=== PATIENT | male | born 1995 | race Caucasian/White ===

== ENCOUNTER 2020-06-29 03:51 | Emergency (ER) | payer MEDICAID, SELFPAY ==
[2020-06-29 03:56] VITALS: BP 136/88; BP 148/76; PULSE 100; PULSE 152; RESP 30; O2SAT 95; O2SAT 98; BMI 30.9
[2020-06-29] MEDS: 0.9 % Sodium Chloride 1,000 ML 999 ML IVCONT ×2 (04:00→07:49)
--- NOTE | 2020-06-29 04:01 | CT_ITS ---
EXAMINATION: CONTRAST-ENHANCED CT OF THE CHEST; CONTRAST-ENHANCED CT OF THE ABDOMEN AND PELVIS INDICATION: Jumped 15 feet, reported rectal bleeding COMPARISON: None TECHNIQUE: 85 mL Omnipaque 350 IV contrast was utilized. Multidetector helical imaging was performed through the chest, abdomen, and pelvis. Coronal and sagittal reformatted images were created at the technologist workstation. DLP: 1680 mGy-cm DOSE LOWERING TECHNIQUES: This CT examination was performed using dose optimization techniques as appropriate, variously including the following: - Automated exposure control - Adjustment of mA and/or kV according to patient size (this includes techniques or standardized protocols for targeted exams were dose is matched to indication/reason for exam; i.e. extremities or head) - Use of iterative reconstruction technique FINDINGS: Chest: Partially limited assessment due to motion artifact. No regions of pulmonary consolidation identified bilaterally. No pneumothorax or pleural effusion. The visualized thyroid gland is unremarkable. There are subcentimeter mediastinal lymph nodes within the range of normal variation. Cardiac size is within normal limits; no pericardial effusion. Aorta appears unremarkable. Mild residual thymic tissue is suspected in the anterior mediastinum. No axillary lymphadenopathy is present. Abdomen/Pelvis: Suboptimal assessment due to patient motion artifact. The liver is homogeneous in attenuation without intrahepatic biliary ductal dilatation. The gallbladder is unremarkable. The spleen, pancreas, and adrenal glands are within normal limits. Bilateral nephrograms are symmetric. No hydronephrosis. No obstructing renal or ureteral calculi are present. Several hypodense lesions are present in both kidneys measuring up to approximately 2.8 cm, favored to represent cysts. The urinary bladder is unremarkable. The prostate and seminal vesicles are unremarkable. There is a thick-walled appearance of the rectum with mild adjacent stranding, suspicious for proctitis. No evidence of bowel obstruction. The appendix is unremarkable. No free fluid or free air is identified. The vascular structures are unremarkable. No retroperitoneal or pelvic lymphadenopathy is seen. No acute osseous findings. CT/CT abdomen pelvis w con IMPRESSION: 1. Suboptimal assessment due to patient motion artifact. 2. Thick-walled appearance of the rectum with mild surrounding stranding, suspicious for proctitis. 3. Several hypodense lesions in the kidneys, favoring cysts.
--- NOTE | 2020-06-29 04:01 | CT_ITS ---
CT/CT cervical spine wo con IMPRESSION: 1. Head: Suboptimal assessment due to patient motion artifact. No acute findings identified. 2. Cervical spine: Reversal of the normal cervical lordosis which may be due to patient positioning or muscle spasm. No additional acute findings identified. EXAMINATION: NONCONTRAST HEAD CT NONCONTRAST CERVICAL SPINE CT INDICATION INFORMATION: Fall COMPARISON: Head CT 09/04/2019 TECHNIQUE: Separate noncontrast CT examinations of the head and cervical spine were performed. Coronal head CT images and coronal and sagittal cervical spine images were created at the technologist workstation. DLP: 1417 mGy-cm DOSE LOWERING TECHNIQUES: This CT examination was performed using dose optimization techniques as appropriate, variously including the following: - Automated exposure control - Adjustment of mA and/or kV according to patient size (this includes techniques or standardized protocols for targeted exams were dose is matched to indication/reason for exam; i.e. extremities or head) - Use of iterative reconstruction technique FINDINGS: Head: Suboptimal assessment due to patient motion artifact. There is no evidence of acute intracranial hemorrhage or territorial infarction. No abnormal mass-effect or midline shift is seen. Bernstein to white matter differentiation is well preserved. No extra-axial fluid collections are identified. The ventricles are normal in size. There is no abnormal attenuation within the brain parenchyma. The osseous structures and soft tissues are normal. The mastoid air cells and visualized portions of the paranasal sinuses are well-aerated. Cervical spine: There is anatomic alignment of the vertebral bodies and posterior elements. There is reversal of normal cervical lordosis. Vertebral body heights are maintained. Intervertebral disc spaces are preserved. No evidence of acute fracture. No prevertebral soft tissue swelling. Visualized portions of the lung apices are unremarkable. The thyroid gland is unremarkable.
--- NOTE | 2020-06-29 04:02 | ECG_ITS ---
Test Reason : DRUG ABUSE Blood Pressure : / mmHG Vent. Rate : 141 BPM Atrial Rate : 141 BPM P-R Int : 126 ms QRS Dur : 098 ms QT Int : 298 ms P-R-T Axes : 080 061 063 degrees QTc Int : 456 ms Sinus tachycardia Otherwise normal ECG When compared with ECG of 09-JUL-2008 12:09, Heart rate has increased by 66 beats/min Referred By: Randee Pineda Electronically Signed By:Luis Fernando Rojas
--- NOTE | 2020-06-29 04:04 | ED_ITS ---
HPI - Altered Mental Status General Chief Complaint: ETOH/Substance Use Stated Complaint: ETOH Time Seen by Provider: 06/29/20 04:01 Source: patient, EMS and old records reviewed Mode of arrival: EMS Limitations: altered mental status History of Present Illness HPI narrative: patient states he did PCP tonight, I tonight, I am supposed to be . patient reportedly jumped 10 feet out of a window, noted bleeding from rectum and was running around the streets waving a ji JI complaint: altered mental status Onset (ago): hour(s) Timing confirmed by: family member Severity: severe Consistency of symptoms: getting Worse Context: drug abuse Associated symptoms: other (family noted bleeding from his rectum, waving dildo in the streets) Related Data Previous Rx's Medication Instructions Recorded metronidazole [Flagyl] 500 mg PO BID 7 Days #14 tab 06/29/20 Allergies Allergy/AdvReac Type Severity Reaction Status Date / Time No Known Allergies Allergy Unverified 02/20/20 16:14 Review of Systems Review of Systems: ROS unable to be obtained due to altered mental status [facility] Past Medical History Source: old records reviewed Medical History (Updated 06/29/20 @ 06:15 by Randee Pineda DO) Anxiety Asthma Depression No known health problems PCP abuse Social History Social History (Updated 06/29/20 @ 04:05 by Randee Pineda DO) Substance Use Type: Crack/Cocaine and Hallucinogens Advance Directives: No Advance Directives Information Provided: No Physical Exam Vital Signs: Vital Signs: Last Vital Signs Temp 98.4 F 06/29/20 05:13 Pulse 139 H 06/29/20 06:12 Resp 16 06/29/20 06:12 BP 128/80 06/29/20 06:12 Pulse Ox 98 06/29/20 05:13 Body Mass Index 30.9 Appearance: Alert. Oriented X1. Moderate acute distress. Eyes: Pupils 5mm equal, round and reactive to light. No nystagmus ENT: Pharynx normal. Neck: Normal inspection. Neck supple. CVS: tachycardic heart rate and rhythm. Pulses normal. Respiratory: No respiratory distress. Breath sounds normal. Abdomen: Soft and nontender. Rectal: no trauma noted, dried blood upper buttock crease but no active bleeding from rectum Skin: Skin warm and dry. Normal skin color. Normal skin turgor. Extremities: No lower extremity edema. No calf ttp Neuro: Oriented X 1. No motor deficit. No sensory deficit. Course Course Course Narrative: patient seemed to have a breath holding spell, he is moving away from painful stimuli and then desaturated to 70%, NRB and bagged for less than a minute patient fought to have his eyes opened, given 2mg narcan but he was already breathing on his own again - will continue to closely observe patient now awake but disoriented no hypoxia oral flagyl ordered for proctitis - likely from the dildo he was seen waving around while running signed out to Dr. Carballo pending clinical sobriety MDM - Altered Mental Status MDM Narrative Medical decision making narrative: 24 yo male with prior PCP abuse reports he used PCP and cocaine tonight, family noted he jumped out of 10 foot window, had bleeding from rectum and was running around streets with dildo - patient cannot give much history at this time no active rectal bleeding will obtain trauma CT scans, IV ativan for agitation, labs, dispo per results and findings. Lab Data Result diagrams: 06/29/20 04:04 06/29/20 04:49 Labs: Lab Results 06/29/20 06/29/20 06/29/20 Range/Units 04:04 04:04 04:49 WBC 6.7 (4.8-10.8) X10*3/uL RBC 5.13 (4.60-5.80) X10*6/uL Hgb 15.3 (14.0-18.0) g/dl Hct 46.0 (42-52) % MCV 89.7 (80-98) fL MCH 29.8 (27.0-33.0) pg MCHC 33.3 (31.0-36.0) g/dl RDW 12.4 (11.0-16.0) % Plt Count 286 (160-400) X10*3/uL MPV 9.6 (9.4-12.4) fL Immature Gran % (Auto) 0.1 (0.0-0.4) % Neut % (Auto) 66.5 (45-73) % Lymph % (Auto) 24.2 (20-40) % [place] % (Auto) 6.9 (2-11) % Eos % (Auto) 1.6 (0-4) % Baso % (Auto) 0.7 (0-2) % Lymph # (Auto) 1.6 (1.2-4.9) X10*3/uL [place] # (Auto) 0.5 (0.1-1.2) X10*3/uL Eos # (Auto) 0.1 (0.0-0.4) X10*3/uL Baso # (Auto) 0.1 (0.0-0.2) X10*3/uL Abs Immat Gran (auto) 0.01 (0.00-0.03) X10*3/uL Absolute Neuts (auto) 4.5 (2.0-8.3) X10*3/uL Absolute Nucleated RBC 0.000 (0.0-0.012) X10*3/uL Nucleated RBC % (auto) 0.0 (0.0-0.2) /100WBC PT 12.2 (10.8-13.0) SEC INR 1.0 (0.9-1.1) APTT 28.3 (24.1-38.0) SEC Sodium 137 (135-145) mmol/L Potassium 3.5 (3.3-5.1) mmol/l Chloride 104 (96-108) mmol/L Carbon Dioxide 18 L (22-29) mmol/L Anion Gap 19 (12-20) BUN 12 (9-16) mg/dL Creatinine 1.24 (0.5-1.4) mg/dL Estim Creat Clear Calc 99.4 Estimated GFR > 60 Random Glucose 191 H (60-115) mg/dL Calcium 8.6 (8.4-10.2) mg/dL Magnesium 2.2 (1.6-2.6) mg/dL Total Bilirubin 0.4 (0.0-1.0) mg/dL Direct Bilirubin 0.2 (0.0-0.5) mg/dL AST 22 (5-37) U/L ALT 23 (0-40) U/L Alkaline Phosphatase 58 (39-117) U/L Total Creatine Kinase 214 H (38-174) U/L Total Protein 6.9 (6.5-8.0) g/dL Albumin 4.2 (3.5-5.0) g/dL Lipase (8-78) U/L Ethyl Alcohol mg/dL COVID-19 ([place]) (Negative) COVID-19 Clin Com 06/29/20 06/29/20 06/29/20 Range/Units 04:49 04:49 04:49 WBC (4.8-10.8) X10*3/uL RBC (4.60-5.80) X10*6/uL Hgb (14.0-18.0) g/dl Hct (42-52) % MCV (80-98) fL MCH (27.0-33.0) pg MCHC (31.0-36.0) g/dl RDW (11.0-16.0) % Plt Count (160-400) X10*3/uL MPV (9.4-12.4) fL Immature Gran % (Auto) (0.0-0.4) % Neut % (Auto) (45-73) % Lymph % (Auto) (20-40) % [place] % (Auto) (2-11) % Eos % (Auto) (0-4) % Baso % (Auto) (0-2) % Lymph # (Auto) (1.2-4.9) X10*3/uL [place] # (Auto) (0.1-1.2) X10*3/uL Eos # (Auto) (0.0-0.4) X10*3/uL Baso # (Auto) (0.0-0.2) X10*3/uL Abs Immat Gran (auto) (0.00-0.03) X10*3/uL Absolute Neuts (auto) (2.0-8.3) X10*3/uL Absolute Nucleated RBC (0.0-0.012) X10*3/uL Nucleated RBC % (auto) (0.0-0.2) /100WBC PT (10.8-13.0) SEC INR (0.9-1.1) APTT (24.1-38.0) SEC Sodium (135-145) mmol/L Potassium (3.3-5.1) mmol/l Chloride (96-108) mmol/L Carbon Dioxide (22-29) mmol/L Anion Gap (12-20) BUN (9-16) mg/dL Creatinine (0.5-1.4) mg/dL Estim Creat Clear Calc Estimated GFR Random Glucose (60-115) mg/dL Calcium (8.4-10.2) mg/dL Magnesium (1.6-2.6) mg/dL Total Bilirubin (0.0-1.0) mg/dL Direct Bilirubin (0.0-0.5) mg/dL AST (5-37) U/L ALT (0-40) U/L Alkaline Phosphatase (39-117) U/L Total Creatine Kinase (38-174) U/L Total Protein (6.5-8.0) g/dL Albumin (3.5-5.0) g/dL Lipase 52 (8-78) U/L Ethyl Alcohol < 10 mg/dL COVID-19 ([place]) Negative (Negative) COVID-19 Clin Com See Note ECG Data ECG #1: Attestation: I personally reviewed and interpreted this ECG as follows: ECG interpretation date: 06/29/20 ECG interpretation time: 04:10 Interpretation: Rate: 141 Rhythm: sinus tachycardia [place]: normal Normal P waves. Normal [place]. Normal QRS complex. ST T wave : normal no JAMEY qTC: normal prior studies: no acute ischemia The study has been interpreted contemporaneously by me. . Discharge Plan Discharge Clinical Impression: Proctitis PCP intoxication Qualifiers: Complication of substance-induced condition: with delirium Qualified Code(s): F16.921 - Hallucinogen use, unspecified with intoxication with delirium Instructions: Proctitis (ED), Polysubstance Abuse (ED) Additional Instructions: return to ED for any worsening symptoms or concerns Prescriptions: New metronidazole [Flagyl] 500 mg tablet 500 mg PO BID 7 Days Qty: 14 RF: 0 Stand Alone Forms: Work/School Release
[2020-06-29 04:09] LABS: Basophils Absolute Auto 0.1 X10*3/uL (0.0-0.2); Basophils Percent Auto 0.7 % (0-2); Eosinophils Absolute Auto 0.1 X10*3/uL (0.0-0.4); Eosinophils Percent Auto 1.6 % (0-4); Hemoglobin 15.3 g/dl (14.0-18.0); Imm Gran Abs Auto 0.01 X10*3/uL (0.00-0.03); Imm Gran Pct Auto 0.1 % (0.0-0.4); Lymphocytes Absolute Auto 1.6 X10*3/uL (1.2-4.9); Lymphocytes Percent Auto 24.2 % (20-40); MANUAL DIFF FLAG NO; Mean Corpuscular HGB Conc 33.3 g/dl (31.0-36.0); Mean Corpuscular Hemoglobin 29.8 pg (27.0-33.0); Mean Corpuscular Volume 89.7 fL (80-98); Mean Platelet Volume 9.6 fL (9.4-12.4); Monocytes Absolute Auto 0.5 X10*3/uL (0.1-1.2); Monocytes Percent Auto 6.9 % (2-11); Neutrophils Absolute Auto 4.5 X10*3/uL (2.0-8.3); Neutrophils Percent Auto 66.5 % (45-73); Platelet Count 286 X10*3/uL (160-400); Red Blood Count 5.13 X10*6/uL (4.60-5.80); Red Cell Distribution Width 12.4 % (11.0-16.0); White Blood Count 6.7 X10*3/uL (4.8-10.8)
[2020-06-29] MEDS: Naloxone HCl 2 MG/2 ML SYRINGE IVPUSH (04:14)
--- NOTE | 2020-06-29 04:14 | PC.NURSE ---
PATIENT O2 DOWN TO 70% WITH GOOD PLETH. STAFF TO BED SIDE NC PLACED ON PATIENT. UNRESPONSIVE TO PAINFUL STIMULI. GIVEN 2MG IV NARCAN. NOW 100% ON NON-REBREATHER.
[2020-06-29 04:18] LABS: Prothrombin Time 12.2 SEC (10.8-13.0)
[2020-06-29 04:20] LABS: Partial Thromboplastin Time 28.3 SEC (24.1-38.0)
[2020-06-29 04:36] VITALS: BP 166/71; PULSE 146; RESP 20; TEMP 36.7; O2SAT 99
[2020-06-29 05:07] LABS: COVID-19 Test Negative (Negative)
[2020-06-29 05:13] VITALS: BP 132/81; PULSE 129; RESP 18; TEMP 36.9; O2SAT 98
[2020-06-29 05:18] LABS: Ethanol < 10 mg/dL
[2020-06-29 05:20] LABS: Lipase 52 U/L (8-78)
[2020-06-29 05:22] LABS: Alanine Aminotransferase 23 U/L (0-40); Albumin Level 4.2 g/dL (3.5-5.0); Alkaline Phosphatase 58 U/L (39-117); Anion Gap 19 (12-20); Aspartate Amino Transferase 22 U/L (5-37); Bilirubin Direct 0.2 mg/dL (0.0-0.5); Bilirubin Total 0.4 mg/dL (0.0-1.0); Blood Urea Nitrogen 12 mg/dL (9-16); Calcium 8.6 mg/dL (8.4-10.2); Carbon Dioxide 18 mmol/L (22-29); Chloride 104 mmol/L (96-108); Creatinine Clr Calc Pharmacy 99.4; Estimated Glomerular Filt Rate > 60; Glucose Random 191 mg/dL (60-115); Magnesium 2.2 mg/dL (1.6-2.6); Potassium 3.5 mmol/l (3.3-5.1); Sodium 137 mmol/L (135-145); Total Protein 6.9 g/dL (6.5-8.0)
[2020-06-29] MEDS: LORazepam 2 MG/ML VIAL 1 MG IVPUSH (05:41)
[2020-06-29 06:12] VITALS: BP 128/80; PULSE 139; RESP 16
[2020-06-29] MEDS: metroNIDAZOLE 500 MG TABLET PO (06:42)
[2020-06-29 07:32] LABS: Appearance Urine CLEAR; Color Urine YELLOW; Glucose Urine UA 100 MG/DL (NEG); Leukocyte Esterase Urine NEG (NEG); Nitrite Urine NEG (NEG); Specific Gravity - Urine 1.015 (1.005-1.025); Urine Blood TRACE (NEG); Urine Ketones NEG (NEG); Urine Protein TRACE MG/DL (NEG-TRACE)
[2020-06-29 07:42] LABS: Squamous Epithelial Cell Urine 1+ /LPF
[2020-06-29 07:43] LABS: Mucus Urine 2+ /LPF; Renal Epithelial Cells Urine TRACE /LPF; Trichomonas Urine NOTED
[2020-06-29 07:48] VITALS: BP 122/80; PULSE 122; RESP 16; O2SAT 98
--- NOTE | 2020-06-29 07:49 | PC.NURSE ---
Pt denies ETOH use but admits to recreational PCP use. No SI/HI Steady on feet to bathroom, urine specimen obtained Tachy on tele rate 120s, additional 1L NS started
[2020-06-29 08:05] LABS: Amphetamine Screen Urine Not Detected (Not Detect); Barbiturates, Urine Not Detected (Not Detect); Benzodiazepines Screen Urine Not Detected (Not Detect); Cannabinoid Screen Urine Not Detected (Not Detect); Cocaine Screen Urine POSITIVE (Not Detect); Opiate Screen Urine Not Detected (Not Detect); Phencyclidine Screen Urine POSITIVE (Not Detect)
[2020-06-29 10:00] VITALS: BP 128/73; PULSE 97; RESP 18; O2SAT 98
--- NOTE | 2020-06-29 10:45 | MHC.RECOVRN ---
06/29/20 1687 T/w met with pt to discuss substance use. Pt states I don't want to talk about it. T/w left resources and card with pt if pt would like to reach out to discuss at another time.
--- NOTE | 2020-06-29 10:56 | MHC.RECOVSUP ---
? Reason for consult:Continuity of care o Current location: o Identified substance use concern: PCP - Support ? Intervention:Pt, given community resources ? Plan:Discharge ? Additional information: Patient referred to [facility] and given community resources
== END 2020-06-29 10:25 | disposition home or self-care (01) ==
PROVIDERS: Emergency Provider Emergency Medicine
DX: K62.89 Other specified diseases of anus and rectum (principal); F16.121 Hallucinogen abuse with intoxication with delirium; F19.121 Other psychoactive substance abuse with intoxication delirium; Z20.822 Contact with and (suspected) exposure to COVID-19
CPT/HCPCS: 36415; 70450; 71260; 72125; 74177; 80048; 80076; 80307; 80320; 81001; 82550; 83690; 83735; 85025; 85610; 85730; 87635; 93005; 96361; 96374; 96375; 96376; 99285; J2060

== ENCOUNTER 2020-11-19 21:16 | Emergency (ER) | payer MEDICAID, SELFPAY ==
--- NOTE | ~2020-11-19 | XR_ITS ---
EXAMINATION: XR CHEST CLINICAL INFORMATION: Confusion. Overdose. COMPARISON: Chest x-ray 08/03/2016 TECHNIQUE: Frontal view of the chest was obtained. 10:05 PM FINDINGS: No significant abnormality is noted involving the heart, lungs, mediastinum, bony thorax or soft tissues. XR/XR chest 1V IMPRESSION: Unremarkable examination.
--- NOTE | ~2020-11-19 | CT_ITS ---
EXAMINATION: CT HEAD WITHOUT CONTRAST CLINICAL INFORMATION: Overdose, confused, rule out intracranial abnormality. COMPARISON: 06/29/[address] scan. TECHNIQUE: Contiguous axial imaging was performed from the skull base to vertex without intravenous administration of contrast. Coronal and sagittal reformatted images were obtained. This CT examination was performed using dose optimization techniques as appropriate, variously including the following: *Automated exposure control *Adjustment of mA and/or kV according to patient size (this includes techniques or standardized protocols for targeted exams where dose is matched to indication/reason for exam; i.e. extremities or head) *Use of iterative reconstruction technique DLP: 671 mGy-cm FINDINGS: There is no evidence of acute intracranial hemorrhage or territorial infarction. No abnormal mass effect or midline shift is seen. Bernstein to white matter differentiation is well preserved. No extra-axial fluid collections are identified. The ventricles are normal in size. There is no abnormal attenuation within the brain parenchyma. The osseous structures and soft tissues are normal. Small retention cyst versus inflammatory polyps along the medial wall the right maxillary sinus as well is the right sphenoid sinus. No air-fluid levels. Bilateral mastoid air cells are clear. CT/CT head/brain wo con IMPRESSION: No acute intracranial pathology.
[2020-11-19 21:31] VITALS: BP 160/102; PULSE 130
[2020-11-19 21:37] VITALS: BP 143/77; PULSE 120; RESP 18; O2SAT 96
[2020-11-19 21:39] VITALS: BP 143/77; PULSE 120; RESP 20; TEMP 37.1; O2SAT 92; BMI 25.6
--- NOTE | 2020-11-19 21:40 | ECG_ITS ---
Test Reason : OVERDOSE Blood Pressure : / mmHG Vent. Rate : 123 BPM Atrial Rate : 123 BPM P-R Int : 150 ms QRS Dur : 098 ms QT Int : 314 ms P-R-T Axes : 067 059 025 degrees QTc Int : 449 ms Sinus tachycardia Otherwise normal ECG When compared with ECG of 29-JUN-2020 04:07, No significant change was found Referred By: Alber Martin Electronically Signed By:PARUL SMALL
--- NOTE | 2020-11-19 21:42 | ED_ITS ---
HPI - General Adult General Chief complaint: Overdose Stated complaint: od Time Seen by Provider: 11/19/20 21:39 Source: RN notes reviewed Mode of arrival: EMS Limitations: no limitations History of Present Illness HPI narrative: 25-year-old male brought to the emergency department for possible overdose. The patient lacks insight as to why he is here in the emergency department and appears to be confused but does follow simple commands. According to the ED nurse who report from the paramedics, they were called to the patient's home for the patient who became unresponsive after polysubstance use. The patient had a very low respiratory rate and the paramedics were assisting his respirations with a bag valve mask. He received 8 mg of Narcan intranasally and 2 mg of Narcan IV. He then woke up and became combative he pulled out his IV line, he was hypertensive with a blood pressure of 160/102 and tachycardic with a pulse of 170. Patient's point of care glucose was 130. Paramedics were able to reestablish the IV and transport the patient to the emergency department. Here in the emergency department patient was able to tell me his name, he cannot tell me why he is here in the emergency department, he appears to be confused. Related Data Previous Rx's Medication Instructions Recorded metronidazole [Flagyl] 500 mg PO BID 7 Days #14 tab 06/29/20 Allergies Allergy/AdvReac Type Severity Reaction Status Date / Time No Known Allergies Allergy Unverified 02/20/20 16:14 Review of Systems Review of Systems: Yes all other systems are reviewed and are negative PMFSH Past Medical History [facility] Narrative: Past medical history: Please see below. Past surgical history: Unobtainable. Social history: Unobtainable Medical History (Updated 11/20/20 @ 00:20 by Alber Martin MD) Anxiety Asthma Depression No known health problems PCP abuse Social History Social History Alcohol intake: unknown Patient Tobacco Use Status: Refuse Tobacco use screen Use of substances other than those prescribed or required for medical reasons: Refusing to respond Substance Use Type: Amphetamines Advance Directives: No Advance Directives Information Provided: Yes Physical Exam Vital Signs: Vital Signs: Last Vital Signs Temp 98.7 F 11/19/20 21:39 Pulse 105 H 11/20/20 00:12 Resp 18 11/20/20 00:12 BP 137/81 11/20/20 00:12 Pulse Ox 97 11/20/20 00:12 Body Mass Index 25.6 Const: Other: Patient is awake, who is able to tell me his name, appears to be confused and he cannot tell me why is here in the emergency department. He does follow commands, he is cooperative at this time. Orientation /consciousness: oriented to person HENMT: Head: Yes normal to inspection, Yes normocephalic and Yes atraumatic Ears: external ears normal General nose exam: Normal external nose present Face and sinus: Yes normal facial exam Mouth: Normal oral and palatal mucosa present Throat: Yes posterior oropharynx normal Eyes: Periorbital: periorbital findings normal Eyelids: Yes eyelids normal Conjunctivae: conjunctivae normal Sclerae: sclerae normal Corneas: corneas normal Pupils: Equal, round and reactive pupils present Direct Ophthalmoscopy: normal light reflex Neck: Neck: Yes full ROM, Yes no lymphadenopathy, Yes no meningeal signs, Yes trachea midline and Yes supple Chest: Chest palpation & inspection: normal inspection of the chest and normal palpation of entire chest wall Resp: Effort & Inspection: normal respiratory effort and able to speak in comp lete sentences Auscultation: clear to auscultation bilaterally Cardio: Rate: regular rate Rhythm: regular rhythm Heart sounds: S1 normal heart sound present, S2 normal heart sound present and no murmurs GI: Inspection: Yes normal to inspection Palpation (GI): Soft to palpation, nontender, no guarding, not rigid and No hepatosplenomegaly present : General: Yes no CVA tenderness Back/Spine/Pelvis: Back: no CVA tenderness Cervical Spine: normal cervical lordosis Thoracic/Lumbar Spine: thoracic and lumbar spine normal to inspection Skin: Lesions: no lesions Rashes: no rashes Wounds: no wounds Neuro: General: oriented to person and no meningeal signs Cranial nerves: Y es CN's II-XII intact bilaterally and Yes Equal, round and reactive pupils present Cognition (Neuro): normal cognition Motor exam (neuro): 5/5 motor strength present throughout Extrem: General: Yes normal to inspection and Yes full ROM Psych: Appearance: [facility] Course Course Course Narrative: 25-year-old male who presents emergency department for evaluation of altered level of consciousness, respiratory depression and possible polysubstance abuse. The patient was given Narcan 8 mg intranasally 2 mg IV and he did eventually wake up and become combative. He was hypertensive, tachycardic and uncooperative when the paramedics eventually woke him up with Narcan. Here in the emergency department he is cooperative but appears to be confused. Vital signs in the emergency department revealed tachycardia with pulse of 120 and hypertension with a blood pressure of 143/77 otherwise were unremarkable. His examination was also unremarkable except for his confusion. The patient will be kept on a cardiac and O2 saturation monitor. I did order CBC, CMP, urine tox screen, alcohol level, lactic acid, lipase and urinalysis. I will obtain a CT scan of the patient's head and chest x-ray. At this time the patient appears to be calm and cooperative and does not need to be medicated. 0014: Patient's laboratory evaluation revealed a normal CBC, low bicarb of 19, elevated glucose, mildly elevated AST and ALT. Urinalysis was negative. Tox screen was positive PCP and cocaine. Chest x-ray was unremarkable. CT scan the brain was unremarkable. The patient is awake and alert, he is requesting to go home. The patient does not want to talk to a crisis counselor about his drug use. I did tell the patient that he overdosed on narcotic medication almost tonight. The patient will be sent home with a Narcan nasal Dosepak. I told him that if he continues to use drugs that he should make sure that there was a sober observer that can administer Narcan in the event that he stops breathing or becomes unresponsive. The patient's mother was contacted and she will come to the emergency department and take the patient home. Medical Decision Making Lab Data Result diagrams: 11/19/20 21:53 11/19/20 21:53 Labs: Lab Results 11/19/20 11/19/20 11/19/20 Range/Units 21:53 21:53 21:53 WBC 7.4 (4.8-10.8) X10*3/uL RBC 4.53 L (4.60-5.80) X10*6/uL Hgb 13.8 L (14.0-18.0) g/dl Hct 41.6 L (42-52) % MCV 91.8 (80-98) fL MCH 30.5 (27.0-33.0) pg MCHC 33.2 (31.0-36.0) g/dl RDW 13.3 (11.0-16.0) % Plt Count 264 (160-400) X10*3/uL MPV 9.5 (9.4-12.4) fL Immature Gran % (Auto) 0.3 (0.0-0.4) % Neut % (Auto) 74.4 H (45-73) % Lymph % (Auto) 19.0 L (20-40) % [place] % (Auto) 3.9 (2-11) % Eos % (Auto) 1.9 (0-4) % Baso % (Auto) 0.5 (0-2) % Lymph # (Auto) 1.4 (1.2-4.9) X10*3/uL [place] # (Auto) 0.3 (0.1-1.2) X10*3/uL Eos # (Auto) 0.1 (0.0-0.4) X10*3/uL Baso # (Auto) 0.0 (0.0-0.2) X10*3/uL Abs Immat Gran (auto) 0.02 (0.00-0.03) X10*3/uL Absolute Neuts (auto) 5.5 (2.0-8.3) X10*3/uL Absolute Nucleated RBC 0.000 (0.0-0.012) X10*3/uL Nucleated RBC % (auto) 0.0 (0.0-0.2) /100WBC Sodium 141 (135-145) mmol/L Potassium 3.9 (3.3-5.1) mmol/L Chloride 106 (96-108) mmol/L Carbon Dioxide 27 (22-29) mmol/L Anion Gap 12 (12-20) BUN 19 H D (9-16) mg/dL Creatinine 1.24 (0.5-1.4) mg/dL Estim Creat Clear Calc 86.5 Estimated GFR > 60 Random Glucose 156 H (60-115) mg/dL Lactic Acid 1.4 (0.5-2.0) mmol/L Calcium 9.1 (8.4-10.2) mg/dL Total Bilirubin 0.4 (0.0-1.0) mg/dL AST 94 H (5-37) U/L ALT 101 H (0-40) U/L Alkaline Phosphatase 73 D (39-117) U/L Total Protein 6.7 (6.5-8.0) g/dL Albumin 4.0 (3.5-5.0) g/dL Lipase (8-78) U/L Ethyl Alcohol mg/dL 11/19/20 11/19/20 Range/Units 21:53 21:53 WBC (4.8-10.8) X10*3/uL RBC (4.60-5.80) X10*6/uL Hgb (14.0-18.0) g/dl Hct (42-52) % MCV (80-98) fL MCH (27.0-33.0) pg MCHC (31.0-36.0) g/dl RDW (11.0-16.0) % Plt Count (160-400) X10*3/uL MPV (9.4-12.4) fL Immature Gran % (Auto) (0.0-0.4) % Neut % (Auto) (45-73) % Lymph % (Auto) (20-40) % [place] % (Auto) (2-11) % Eos % (Auto) (0-4) % Baso % (Auto) (0-2) % Lymph # (Auto) (1.2-4.9) X10*3/uL [place] # (Auto) (0.1-1.2) X10*3/uL Eos # (Auto) (0.0-0.4) X10*3/uL Baso # (Auto) (0.0-0.2) X10*3/uL Abs Immat Gran (auto) (0.00-0.03) X10*3/uL Absolute Neuts (auto) (2.0-8.3) X10*3/uL Absolute Nucleated RBC (0.0-0.012) X10*3/uL Nucleated RBC % (auto) (0.0-0.2) /100WBC Sodium (135-145) mmol/L Potassium (3.3-5.1) mmol/L Chloride (96-108) mmol/L Carbon Dioxide (22-29) mmol/L Anion Gap (12-20) BUN (9-16) mg/dL Creatinine (0.5-1.4) mg/dL Estim Creat Clear Calc Estimated GFR Random Glucose (60-115) mg/dL Lactic Acid (0.5-2.0) mmol/L Calcium (8.4-10.2) mg/dL Total Bilirubin (0.0-1.0) mg/dL AST (5-37) U/L ALT (0-40) U/L Alkaline Phosphatase (39-117) U/L Total Protein (6.5-8.0) g/dL Albumin (3.5-5.0) g/dL Lipase 49 (8-78) U/L Ethyl Alcohol < 10 mg/dL ECG Data Interpretation: 2134: Sinus tachycardia with a rate of 123, normal [place], QRS and QTC intervals, no ST segment elevation, no ST segment depression, no PACs, no PVCs, except for the tachycardia, this is a normal EKG. Discharge Plan Discharge Clinical Impression: Polysubstance dependence including opioid type drug with complication, continuous use Opiate overdose Qualifiers: Encounter type: initial encounter Injury intent: accidental or unintentional Qualified Code(s): T40.601A - Poisoning by unspecified narcotics, accidental (unintentional), initial encounter Patient Disposition: Home, Self-Care Instructions: Narcotic Safety (ED), Narcotic Use Disorder (ED) Additional Instructions: You overdosed on narcotics this evening and you almost . You need to get help with your drug use and if you continue to use you will from an overdose. I am sending you home with and intranasal Narcan kit. If you continue to use drugs, you should make sure that there is someone with you who is sober and who can give you the intranasal Narcan if you pass out or stop breathing. Follow-up with your doctor in 2 days. Please return to the emergency department if your symptoms get worse or if you develop any symptoms that are concerning to you. Prescriptions: No Action metronidazole [Flagyl] 500 mg tablet 500 mg PO BID 7 Days Qty: 14 RF: 0
[2020-11-19 21:56] VITALS: BP 127/64; PULSE 113; RESP 20; O2SAT 97
[2020-11-19] MEDS: 0.9 % Sodium Chloride 1,000 ML 999 ML IV (21:56)
[2020-11-19 21:57] LABS: MANUAL DIFF FLAG NO
[2020-11-19 22:00] VITALS: BP 129/69; PULSE 115; RESP 18; O2SAT 96
[2020-11-19 22:03] LABS: Basophils Percent Auto 0.5 % (0-2); Eosinophils Absolute Auto 0.1 X10*3/uL (0.0-0.4); Eosinophils Percent Auto 1.9 % (0-4); Hematocrit 41.6 % (42-52); Hemoglobin 13.8 g/dl (14.0-18.0); Imm Gran Abs Auto 0.02 X10*3/uL (0.00-0.03); Imm Gran Pct Auto 0.3 % (0.0-0.4); Lymphocytes Absolute Auto 1.4 X10*3/uL (1.2-4.9); Mean Corpuscular HGB Conc 33.2 g/dl (31.0-36.0); Mean Corpuscular Hemoglobin 30.5 pg (27.0-33.0); Mean Corpuscular Volume 91.8 fL (80-98); Mean Platelet Volume 9.5 fL (9.4-12.4); Monocytes Absolute Auto 0.3 X10*3/uL (0.1-1.2); Monocytes Percent Auto 3.9 % (2-11); Neutrophils Absolute Auto 5.5 X10*3/uL (2.0-8.3); Neutrophils Percent Auto 74.4 % (45-73); Platelet Count 264 X10*3/uL (160-400); Red Blood Count 4.53 X10*6/uL (4.60-5.80); Red Cell Distribution Width 13.3 % (11.0-16.0); White Blood Count 7.4 X10*3/uL (4.8-10.8)
[2020-11-19 22:15] LABS: Lactic Acid 1.4 mmol/L (0.5-2.0)
[2020-11-19 22:18] LABS: Ethanol < 10 mg/dL
[2020-11-19 22:21] LABS: Lipase 49 U/L (8-78)
[2020-11-19 22:26] LABS: Alanine Aminotransferase 101 U/L (0-40); Alkaline Phosphatase 73 U/L (39-117); Anion Gap 12 (12-20); Aspartate Amino Transferase 94 U/L (5-37); Bilirubin Total 0.4 mg/dL (0.0-1.0); Blood Urea Nitrogen 19 mg/dL (9-16); Calcium 9.1 mg/dL (8.4-10.2); Carbon Dioxide 27 mmol/L (22-29); Chloride 106 mmol/L (96-108); Creatinine Clr Calc Pharmacy 86.5; Estimated Glomerular Filt Rate > 60; Glucose Random 156 mg/dL (60-115); Potassium 3.9 mmol/L (3.3-5.1); Sodium 141 mmol/L (135-145); Total Protein 6.7 g/dL (6.5-8.0)
[2020-11-19 22:45] VITALS: BP 130/70; PULSE 112; RESP 20; O2SAT 98
[2020-11-20] VITALS: BP 137/81; PULSE 110; RESP 18; O2SAT 98
[2020-11-20 00:12] VITALS: BP 137/81; PULSE 105; RESP 18; O2SAT 97
--- NOTE | 2020-11-20 00:13 | PC.NURSE ---
SPOKE WITH MOTHER. PT REQUESTING TO GO HOME. CONTINUES TO DENY SI/HI. PLAN IS FOR MOTHER TO COME AND SPINE NURSE PATIENT. SKIN WARM AND DRY. RESP UNLABORED. DENIES N/V. NO C/O PAIN. TOLERATING PO.
[2020-11-20] MEDS: Naloxone HCl Nasal TAKE HOME 4 MG SPRAY NOSTRILALT (01:05)
== END 2020-11-20 01:11 | disposition home or self-care (01) ==
PROVIDERS: Emergency Provider Emergency Medicine Emergency Medical Services
DX: T40.601A Poisoning by unspecified narcotics, accidental (unintentional), initial encounter (principal); Y92.009 Unspecified place in unspecified non-institutional (private) residence as the place of occurrence of the external cause; F19.20 Other psychoactive substance dependence, uncomplicated
CPT/HCPCS: 36415; 70450; 71045; 80053; 82077; 83605; 83690; 85025; 93005; 96360; 99285

== ENCOUNTER 2021-11-06 19:35 | Emergency (ER) | payer MEDICAID, SELFPAY ==
[2021-11-06 19:44] VITALS: BP 157/94; PULSE 106; RESP 20; TEMP 37.6; O2SAT 96; BMI 30.4
--- NOTE | 2021-11-06 20:14 | ED_ITS ---
HPI - General Adult General Chief complaint: ETOH/Substance Use Stated complaint: broken wrist, delusional Time Seen by Provider: 11/06/21 20:14 Source: patient Mode of arrival: ambulatory Limitations: other (Patient appears under the influence of drugs) History of Present Illness HPI narrative: 26-year-old male history of polysubstance abuse, anxiety, depression presents to the emergency department with complaints of right ear pain and left wrist pain X2 days. Patient unable to give me a good history however according to nursing notes and girlfriend patient has been reporting left wrist pain status post mika jesus last month. Patient is also telling me he feels like there is something in his right ear. He tells me that this has been going on for few days. Patient denies swimming or putting foreign bodies in his ears. And I asked him what while sees here he says lots of stuff and tells me I do not Wanna talk about it . Denies suicidal ideation and homicidal ideation. Denies any other medical complaints at this time. Patient denies suicidal ideation homicidal ideation. Onset (ago): day(s) (2) Radiation: non-radiation Severity: moderate Relieving factors: none Exacerbating factors: none Associated symptoms: denies other symptoms Related Data Previous Rx's Medication Instructions Recorded metronidazole 500 mg tablet 500 mg PO BID 7 Days #14 tab 06/29/20 (Flagyl) Allergies Allergy/AdvReac Type Severity Reaction Status Date / Time No Known Allergies Allergy Unverified 11/06/21 19:51 Review of Systems Review of Systems: Patient refusing to answer my questions. Yes Unobtainable due to mental status PMFSH Past Medical History Attestation statement: The following information was validated with the patient. Source: old records reviewed and nursing notes reviewed Medical History (Updated 11/06/21 @ 22:57 by RADHA Avitia) Anxiety Asthma Depression No known health problems PCP abuse Social History Social History Alcohol intake: unknown Patient Tobacco Use Status: Refuse Tobacco use screen Substance Use Type: Amphetamines Advance Directives: No Advance Directives Information Provided: No Physical Exam ED Vital Signs: Vital Signs - 24 hr 11/06/21 19:44 11/06/21 20:35 Temperature 99.6 F 98.8 F Pulse Rate 106 H 98 Respiratory Rate 20 16 Blood Pressure 157/94 H 161/92 H Pulse Oximetry 96 99 BMI result Body Mass Index 30.4 VSS Appearance: Alert.? Oriented X3.? No acute distress.? Head: Normocephalic, atraumatic, no step-offs or deformities Eyes: Pupils equal, round and reactive to light.? ENT: Pharynx normal.?+ right-sided tympanic membrane bulging with an erythematous ear canal on the right consistent with otitis media. No pain with manipulation of external ears bilaterally. Left ear normal. Neck: Normal inspection.? Neck supple.? CVS: Normal heart rate and rhythm.? Pulses normal.? Respiratory: No respiratory distress.? Breath sounds normal.? Abdomen: Soft and nontender.? Skin: Skin warm and dry.? Normal skin color.? Normal skin turgor.? Extremities: No lower extremity edema.? No calf ttp. 5/5 strength to bilateral upper and lower extremities. Left wrist in a splint, 2+ radial pulses equal bilateral, neurovascularly intact bilaterally. No wrist drop. Back: No midline tenderness, no C-spine tenderness, full range of motion, no CVA tenderness bilaterally Neuro: Oriented X 3.? No motor deficit.? No sensory deficit. CN 2-12 intact Course Reevaluation(s) Reevaluation #1: Patient was started on Augmentin 875. Will schedule him to receive Augmentin 875 p.o. b.i.d. times 10 days. Time: 20:54 Reevaluation #2: Patient ambulating with a steady gait, neuro exam is nonfocal. Alert and oriented x4 requesting to leave. Patient allowed for staff members to drop blood however he stated he is leaving and he does not want wait. He tells me does not want stay in the hospital. Tells me he is upset that his girlfriend brought him to the hospital, he tells me he is not in crisis, denies suicidal ideation and homicidal ideation. He tells me he was just here for his right ear. At this time patient is not on a Section 12, patient left the department. I did send him a script for Augmentin to his pharmacy. Time: 22:54 Medical Decision Making MDM Narrative Medical decision making narrative: 2051 26-year-old male presents with concerns right-sided, he feels like something is in ER, telling me he is here because of a lot of things and he is not willing to talk to me at this time. Denies SI and HI. Denies visual, auditory and tactile hallucinations. Physical examination with patient with bizarre affect, appears to be under the influence of drugs. Right-sided tympanic membrane appears red and bulging with erythema to ear canal consistent with otitis media. Lungs clear. Regular rate and rhythm. Abdomen soft nontender nondistended. Neuro exam nonfocal. Plan at this time is labs, imaging, urine, drug toxicology. Medical Records Medical records reviewed: Yes I reviewed the patient's medical records. Lab Data Lab results reviewed: Yes I reviewed the patient's lab results. Labs: Lab Results 11/06/21 Range/Units 20:25 Urine Opiates Screen Not Detected (Not Detect) Urine Fentanyl Screen Not Detected (Not Detect) Ur Barbiturates Screen Not Detected (Not Detect) Ur Phencyclidine Scrn POSITIVE H (Not Detect) Ur Amphetamines Screen Not Detected (Not Detect) U Benzodiazepines Scrn Not Detected (Not Detect) Urine Cocaine Screen Not Detected (Not Detect) U Marijuana (THC) Screen POSITIVE H (Not Detect) Critical Care Time Critical Care Time Critical Care Time: No Discharge Plan Discharge Clinical Impression: Otitis media, PCP (phencyclidine) abuse, Left against medical advice Patient Disposition: Left Against Medical Advice Instructions: Against Medical Advice (ED), Ear Infection (ED) Additional Instructions: Take your medications as prescribed. If you were prescribed antibiotics today, it is important that you take your medication to their entirety, do not skip any doses, do not finish them early. Follow-up with your primary care provider this week. Return to the emergency department with new or worsening symptoms. Such as fevers, chills, chest pain, shortness of breath, nausea, vomiting, dizziness, headache, vision changes, lethargy, suicidal ideation, homicidal ideation. In case of emergency call 911 Your noted to have an ear infection taking antibiotics as prescribed. Prescriptions: No Action metronidazole [Flagyl] 500 mg tablet 500 mg PO BID 7 Days Qty: 14 0RF Referrals: Physician,Unknown J [Primary Care Provider] - 2 days Stand Alone Forms: Against Medical Advice
[2021-11-06 20:35] VITALS: BP 161/92; PULSE 98; RESP 16; TEMP 37.1; O2SAT 99
[2021-11-06] MEDS: Amoxicillin/Potassium Clav 875 MG TABLET PO (22:37)
[2021-11-06 22:47] LABS: Amphetamine Screen Urine Not Detected (Not Detect); Barbiturates, Urine Not Detected (Not Detect); Benzodiazepines Screen Urine Not Detected (Not Detect); Cannabinoid Screen Urine POSITIVE (Not Detect); Cocaine Screen Urine Not Detected (Not Detect); Fentanyl, urine Not Detected (Not Detect); Opiate Screen Urine Not Detected (Not Detect); Phencyclidine Screen Urine POSITIVE (Not Detect)
[2021-11-06 22:59] LABS: MANUAL DIFF FLAG NO
[2021-11-06 23:10] LABS: Basophils Percent Auto 0.6 % (0-2); Eosinophils Absolute Auto 0.1 X10*3/uL (0.0-0.4); Eosinophils Percent Auto 1.3 % (0-4); Hematocrit 41.3 % (42.0-52.0); Imm Gran Abs Auto 0.01 X10*3/uL (0.00-0.03); Imm Gran Pct Auto 0.2 % (0.0-0.4); Lymphocytes Absolute Auto 1.5 X10*3/uL (1.2-4.9); Lymphocytes Percent Auto 23.6 % (20-40); Mean Corpuscular HGB Conc 33.9 g/dl (31.0-36.0); Mean Corpuscular Hemoglobin 29.7 pg (27.0-33.0); Mean Corpuscular Volume 87.5 fL (80.0-98.0); Mean Platelet Volume 9.1 fL (9.4-12.4); Monocytes Absolute Auto 0.3 X10*3/uL (0.1-1.2); Monocytes Percent Auto 5.1 % (2-11); Neutrophils Absolute Auto 4.4 x10*3/uL (2.0-8.3); Neutrophils Percent Auto 69.2 % (45-73); Platelet Count 325 X10*3/uL (160-400); Red Blood Count 4.72 X10*6/uL (4.60-5.80); Red Cell Distribution Width 12.5 % (11.0-16.0); White Blood Count 6.3 X10*3/uL (4.8-10.8)
[2021-11-06 23:18] LABS: Ethanol < 10 mg/dL
[2021-11-06 23:22] LABS: Alanine Aminotransferase 22 U/L (0-40); Albumin Level 4.5 g/dL (3.5-5.0); Alkaline Phosphatase 56 U/L (39-117); Anion Gap 13 (12-20); Aspartate Amino Transferase 32 U/L (5-37); Bilirubin Total < 0.2 mg/dL (0.0-1.0); Blood Urea Nitrogen 13 mg/dL (9-16); Calcium 9.8 mg/dL (8.4-10.2); Carbon Dioxide 24 mmol/L (22-29); Chloride 105 mmol/L (96-108); Creatinine Clr Calc Pharmacy 125.2; Estimated Glomerular Filt Rate > 60; Glucose Random 135 mg/dL (60-115); Potassium 4.4 mmol/L (3.3-5.1); Sodium 138 mmol/L (135-145); Total Protein 7.6 g/dL (6.5-8.0)
[2021-11-06 23:23] LABS: COVID-19 Test Negative (Negative)
== END 2021-11-07 00:18 | disposition left against medical advice (07) ==
PROVIDERS: Physician Assistant; Emergency Provider Emergency Medicine
DX: H66.91 Otitis media, unspecified, right ear (principal); F16.10 Hallucinogen abuse, uncomplicated; M25.532 Pain in left wrist; Z20.822 Contact with and (suspected) exposure to COVID-19
CPT/HCPCS: 80053; 80307; 82077; 85025; 87635; 99283; 99284

== ENCOUNTER 2021-11-08 06:05 | Emergency (ER) | payer MEDICAID, SELFPAY ==
[2021-11-08 06:17] VITALS: BP 147/89; PULSE 77; RESP 16; TEMP 36.1; O2SAT 98; BMI 30.4
[2021-11-08 06:20] VITALS: BP 147/89; PULSE 72; RESP 16; TEMP 36.1; O2SAT 97; BMI 30.4
[2021-11-08 06:23] VITALS: BP 128/82; PULSE 82; O2SAT 96
== END 2021-11-08 06:54 | disposition left against medical advice (07) ==
PROVIDERS: Emergency Provider Emergency Medicine Emergency Medical Services
DX: H92.09 Otalgia, unspecified ear (principal)
CPT/HCPCS: 99281

== ENCOUNTER 2022-05-31 22:58 | Emergency (ER) | payer MEDICAID, SELFPAY ==
--- NOTE | 2022-05-31 23:14 | ED_ITS ---
HPI - General Adult General Chief complaint: Urogenital-Male Stated complaint: STD testing Source: patient Mode of arrival: ambulatory Limitations: other (Poor historian ) History of Present Illness HPI narrative: This is a 26-year-old male no pmhx presenting to the emergency department requesting STD testing. When I asked him what STD he has been in contact with he tells me it is personal. Reports penile discharge has a hard time describing what it looks like x1 day. Denies fevers, chills, abdominal pain, nausea, vomiting, chest pain, shortness of breath, headache, vision changes in weakness. Related Data Previous Rx's Medication Instructions Recorded metronidazole 500 mg tablet 500 mg PO BID 7 days #14 tabs 06/29/20 (Flagyl) doxycycline hyclate 100 mg capsule 100 mg PO BID 10 days #20 caps 05/31/22 metronidazole 500 mg tablet 500 mg PO BID 7 days #14 tabs 05/31/22 Allergies Allergy/AdvReac Type Severity Reaction Status Date / Time No Known Allergies Allergy Unverified 11/06/21 19:51 Review of Systems Review of Systems: Constitutional : No Weight loss, No Fever, No Chills, No Fatigue, No Malaise ENT/Mouth : No sore throat, No Rhinorrhea Eyes: No Eye Pain, No Swelling, No Redness Cardiovascular : No Chest Pain, No SOB, No Dyspnea on Exertion, No Orthopnea, No Edema, No Palpitations Respiratory : No Cough, No Sputum, No Wheezing Gastrointestinal : No Nausea, No Vomiting, No Diarrhea, No Constipation, No abdominal Pain, No Hematochezia, No Melena Genitourinary : No Dysuria, No Urinary Frequency, No Hematuria, +penile discharge Musculoskeletal : No joint pain, No Myalgias, No Joint Swelling Skin : No Skin Lesions, No rash Neuro : No Weakness, No Numbness, No Dizziness, No Headache Psych : No Anxiety/Panic, No Depression All other systems reviewed and are negative Yes all other systems are reviewed and are negative [facility] Past Medical History Attestation statement: The following information was validated with the patient. Source: old records reviewed and nursing notes reviewed Medical History Anxiety Asthma Depression No known health problems PCP abuse Social History Social History Alcohol intake: unknown Patient Tobacco Use Status: Refuse Tobacco use screen Substance Use Type: Amphetamines Physical Exam ED Vital Signs: vss Appearance: Alert.? Oriented X3.? No acute distress.? Head: Normocephalic, atraumatic, no step-offs or deformities Eyes: Pupils equal, round and reactive to light.? ENT: Pharynx normal.? Neck: Normal inspection.? Neck supple.? CVS: Normal heart rate and rhythm.? Pulses normal.? Respiratory: No respiratory distress.? Breath sounds normal.? Abdomen: Soft and nontender.? Skin: Skin warm and dry.? Normal skin color.? Normal skin turgor.? Extremities: No lower extremity edema.? No calf ttp. 5/5 strength to bilateral upper and lower extremities Back: No midline tenderness, no C-spine tenderness, full range of motion, no CVA tenderness bilaterally Neuro: Oriented X 3.? No motor deficit.? No sensory deficit. CN 2-12 intact Sensitive exam: Normal external genitalia. No pain with palpation. No evidence of discharged on my exam. No lumps or masses. No rashes Course Reevaluation(s) Reevaluation #1: Take your medications as prescribed. If you were prescribed antibiotics today, it is important that you take your medication to their entirety, do not skip any doses, do not finish them early. Follow-up with your primary care provider this week. Return to the emergency department with new or worsening symptoms. Such as fevers, chills, chest pain, shortness of breath, nausea, vomiting, dizziness, headache, vision changes, lethargy In case of emergency call 911 Time: 23:20 Medical Decision Making Medical Decision Making [facility] Narrative: [id number] 26-year-old male presents requesting STD testing he tells me he has come in contact with STDs however unwilling to tell me which ones. Reports penile discharge X1 day Physical exam benign Concerns for STDs. Will obtain UA to rule out UTI Patient agrees to prophylactic treatment for gonorrhea, chlamydia and trichomonas. 500mg IM ceftriaxone has been given here and scripts for doxycycline 100 mg po BID X 7 days and metronidazole 500 mg po BID X 7 days have been given to the patient. Educated on safe sex practices, full pannel STD testing and speaking to? partners on possible STD. Critical Care Time Critical Care Time Critical Care Time: No Discharge Plan Discharge Clinical Impression: Encounter for assessment of STD exposure Patient Disposition: Home, Self-Care Additional Instructions: Take your medications as prescribed. If you were prescribed antibiotics today, it is important that you take your medication to their entirety, do not skip any doses, do not finish them early. Follow-up with your primary care provider this week. Return to the emergency department with new or worsening symptoms. Such as fevers, chills, chest pain, shortness of breath, nausea, vomiting, dizziness, headache, vision changes, lethargy In case of emergency call 911 You were treated here today with ceftriaxone, a medication that treats gonorrhea. I have sent to your pharmacy Metronidazole that covers trichomonas, and Doxycycline which covers for chlamydia. Please be reevaluated by a healthcare provider after completing your antibiotics. Do not stop them early, do not skip any doses. Until you are reevaluated by a health care provider please practice safe sex as disucussed. Please also have a conversation with your sexual partners.? I also advise you to obtain full panel STD testing to test for other STDs including HIV, Hepatitis B & C and syphilis with your PCP or a local clinic. Prescriptions: New doxycycline hyclate 100 mg capsule 100 mg PO BID 10 Days Qty: 20 0RF metronidazole 500 mg tablet 500 mg PO BID 7 Days Qty: 14 0RF No Action metronidazole [Flagyl] 500 mg tablet 500 mg PO BID 7 Days Qty: 14 0RF Referrals: Physician,Unknown J [Primary Care Provider] - 2 days Stand Alone Forms: Work/School Release
[2022-05-31 23:16] VITALS: BP 150/99; PULSE 107; RESP 18; TEMP 36.7; O2SAT 98; BMI 28.1
[2022-05-31] MEDS: Doxycycline Monohydrate 100 MG CAPSULE PO (23:30)
[2022-05-31] MEDS: metroNIDAZOLE 500 MG TABLET PO (23:30)
[2022-05-31] MEDS: cefTRIAXone sodium 500 MG, Lidocaine HCl 1 % MPF 1 ML IM (23:31)
[2022-06-01 01:10] LABS: Appearance Urine Clear; Color Urine Yellow; Glucose Urine UA Negative (Negative); Leukocyte Esterase Urine Trace (Negative); Nitrite Urine Negative (Negative); PH 5.5 (5.0-9.0); UMIC TRIGGER UACC YES; Urine Blood Negative (Negative); Urine Ketones Negative (Negative); Urine Protein Negative (Neg-Trace)
[2022-06-01 01:15] LABS: Bacteria Urine None Seen (None Seen); Hyaline Casts Urine 0-2 /LPF (0-2); RBC Urine 0-2 /HPF (0-2); Squamous Epithelial Cell Urine 0-2 /HPF (0-2); WBC Urine 0-5 /HPF (0-5)
[2022-06-01 14:05] LABS: CT PCR NOT DETECTED (Not Detect.); NG PCR NOT DETECTED (Not Detect.)
== END 2022-05-31 23:46 | disposition home or self-care (01) ==
PROVIDERS: Physician Assistant; Emergency Provider Internal Medicine
DX: R36.9 Urethral discharge, unspecified (principal); Z20.2 Contact with and (suspected) exposure to infections with a predominantly sexual mode of transmission; Z79.899 Other long term (current) drug therapy
CPT/HCPCS: 81001; 87491; 87591; 96372; 99282; 99284; J0696

== ENCOUNTER 2022-06-06 00:08 | Emergency (ER) | payer MEDICAID, SELFPAY ==
--- NOTE | 2022-06-06 00:15 | ED.ABDPAIN ---
HPI - Abdominal Pain General Chief Complaint: Abdominal Pain Stated Complaint: Abd Pain Time Seen by Provider: 06/06/22 00:13 Source: patient and EMS Mode of arrival: EMS Limitations: no limitations History of Present Illness HPI narrative: 26 yo male with history of asthma who is presenting to the ER from home via EMS presenting with nausea, upset stomach and vomiting x1 today. He states he has been eating pork at his aunt's house where he is staying. He usually does not eat any pork but his family has been peer pressuring him to eat it. His stomach has felt unwell since and he has been nauseated. Today he vomited and was not able to eat dinner due to nausea. He also reports green loose stools x2 today. No fever, chills, or localized abdominal pain. No URI symptoms, SOB, cough. No one else at home has similar symptoms. MD elicited complaint: abdominal pain Pertinent past history: none Onset (ago): day(s) Pain Consistency: constant Location: none Severity: moderate Quality: aching Radiation: none Migration to: no migration Exacerbating factors: eating Relieving factors: nothing Context: possible food poisoning Associated symptoms: nausea, vomiting and diarrhea Related Data Previous Rx's Medication Instructions Recorded metronidazole 500 mg tablet 500 mg PO BID 7 days #14 tabs 06/29/20 (Flagyl) doxycycline hyclate 100 mg capsule 100 mg PO BID 10 days #20 caps 05/31/22 metronidazole 500 mg tablet 500 mg PO BID 7 days #14 tabs 05/31/22 ondansetron 4 mg disintegrating 4 mg PO Q8H PRN nausea and 06/06/22 tablet vomiting #7 tabs Allergies Allergy/AdvReac Type Severity Reaction Status Date / Time No Known Allergies Allergy Unverified 11/06/21 19:51 Review of Systems Review of Systems Yes all other systems are reviewed and are negative [facility] Past Medical History Medical History Anxiety Asthma Depression No known health problems PCP abuse Social History Social History Alcohol intake: unknown Patient Tobacco Use Status: Refuse Tobacco use screen Smoked in Last 30 Days: No Use of substances other than those prescribed or required for medical reasons: No Substance Use Type: Amphetamines Advance Directives: No Advance Directives Information Provided: No Physical Exam ED Vital Signs: Vital Signs - 24 hr 06/06/22 00:16 Temperature 98.1 F Pulse Rate 103 H Respiratory Rate 19 Blood Pressure 143/88 H Pulse Oximetry 95 Oxygen Delivery Method Room Air BMI result Body Mass Index 29.7 Appearance: Alert. Oriented X3. No acute distress. Eyes: Pupils equal, round and reactive to light. ENT: Pharynx normal. Neck: Normal inspection. Neck supple. CVS: Normal heart rate and rhythm. Pulses normal. Respiratory: No respiratory distress. Breath sounds normal. Abdomen: Soft and nontender. +BS x4 Skin: Skin warm and dry. Normal skin color. Normal skin turgor. No rashes. Extremities: No lower extremity edema. Neuro: Oriented X 3. grossly normal, nonfocal Course Course Course Narrative: 26-year-old male presents to the ER for evaluation of upset stomach and nausea for the last couple of days with vomiting x1 today. He also reports green loose stools without blood. No fever. On examination his abdomen is soft and nontender. Symptoms most likely related to sensitivity report. Possible gastroenteritis. Will check lab work, viral swabs, give IV fluids and Zofran. Will give p.o. trial. No need for CT scan at this time. Reevaluation(s) Reevaluation #1: labs normal. viral swabs negative. tolerating PO. stable for d/c home with dietary modifications and prn zofran. patient agrees with plan. Medical Decision Making Differential Diagnosis Differential Diagnoses: The differential diagnosis associated with the presentation includes Gastroenteritis, gastritis, diverticulitis, appendicitis, cholecystitis, food poisoning, dehydration, UTI, pyelonephritis, anxiety, infectious colitis Lab Data [facility] Lab Attestation statement: I reviewed the patient's lab results. Result Diagrams: 06/06/22 00:25 06/06/22 00:25 Labs: Lab Results 06/06/22 06/06/22 06/06/22 Range/Units 00:24 00:24 00:25 WBC 5.6 (4.8-10.8) X10*3/uL RBC 4.93 (4.60-5.80) X10*6/uL Hgb 14.5 (14.0-18.0) g/dl Hct 43.0 (42.0-52.0) % MCV 87.2 (80.0-98.0) fL MCH 29.4 (27.0-33.0) pg MCHC 33.7 (31.0-36.0) g/dl RDW 13.2 (11.0-16.0) % Plt Count 260 (160-400) X10*3/uL MPV 9.5 (9.4-12.4) fL Immature Gran % (Auto) 0.2 (0.0-0.4) % Neut % (Auto) 50.2 (45-73) % Lymph % (Auto) 36.2 (20-40) % Grayson % (Auto) 6.7 (2-11) % Eos % (Auto) 5.5 H (0-4) % Baso % (Auto) 1.2 (0-2) % Lymph # (Auto) 2.0 (1.2-4.9) X10*3/uL Grayson # (Auto) 0.4 (0.1-1.2) X10*3/uL Eos # (Auto) 0.3 (0.0-0.4) X10*3/uL Baso # (Auto) 0.1 (0.0-0.2) X10*3/uL Abs Immat Gran (auto) 0.01 (0.00-0.03) X10*3/uL Absolute Neuts (auto) 2.8 (2.0-8.3) x10*3/uL Absolute Nucleated RBC 0.000 (0.0-0.012) X10*3/uL Nucleated RBC % (auto) 0.0 (0.0-0.2) /100WBC Sodium (135-145) mmol/L Potassium (3.3-5.1) mmol/L Chloride (96-108) mmol/L Carbon Dioxide (22-29) mmol/L Anion Gap (12-20) BUN (9-16) mg/dL Creatinine (0.5-1.4) mg/dL Estim Creat Clear Calc Estimated GFR Random Glucose (60-115) mg/dL Calcium (8.4-10.2) mg/dL Magnesium (1.6-2.6) mg/dL Total Bilirubin (0.0-1.0) mg/dL Direct Bilirubin (0.0-0.5) mg/dL AST (5-37) U/L ALT (0-40) U/L Alkaline Phosphatase (39-117) U/L Total Protein (6.5-8.0) g/dL Albumin (3.5-5.0) g/dL Lipase (8-78) U/L Ethyl Alcohol mg/dL COVID-19 ([facility]) Negative (Negative) COVID-19 Clin Com See Note Influenza Type A ([facility]) Negative (Negative) Influenza Type B (ANG) Negative (Negative) Influenza A & B Note See Note 06/06/22 Range/Units 00:25 WBC (4.8-10.8) X10*3/uL RBC (4.60-5.80) X10*6/uL Hgb (14.0-18.0) g/dl Hct (42.0-52.0) % MCV (80.0-98.0) fL MCH (27.0-33.0) pg MCHC (31.0-36.0) g/dl RDW (11.0-16.0) % Plt Count (160-400) X10*3/uL MPV (9.4-12.4) fL Immature Gran % (Auto) (0.0-0.4) % Neut % (Auto) (45-73) % Lymph % (Auto) (20-40) % Grayson % (Auto) (2-11) % Eos % (Auto) (0-4) % Baso % (Auto) (0-2) % Lymph # (Auto) (1.2-4.9) X10*3/uL Grayson # (Auto) (0.1-1.2) X10*3/uL Eos # (Auto) (0.0-0.4) X10*3/uL Baso # (Auto) (0.0-0.2) X10*3/uL Abs Immat Gran (auto) (0.00-0.03) X10*3/uL Absolute Neuts (auto) (2.0-8.3) x10*3/uL Absolute Nucleated RBC (0.0-0.012) X10*3/uL Nucleated RBC % (auto) (0.0-0.2) /100WBC Sodium 141 (135-145) mmol/L Potassium 3.6 (3.3-5.1) mmol/L Chloride 106 (96-108) mmol/L Carbon Dioxide 26 (22-29) mmol/L Anion Gap 13 (12-20) BUN 10 (9-16) mg/dL Creatinine 1.02 (0.5-1.4) mg/dL Estim Creat Clear Calc 113.0 Estimated GFR > 60 Random Glucose 113 (60-115) mg/dL Calcium 9.9 (8.4-10.2) mg/dL Magnesium 1.9 (1.6-2.6) mg/dL Total Bilirubin 0.6 (0.0-1.0) mg/dL Direct Bilirubin 0.2 (0.0-0.5) mg/dL AST 25 (5-37) U/L ALT 19 (0-40) U/L Alkaline Phosphatase 57 (39-117) U/L Total Protein 7.5 (6.5-8.0) g/dL Albumin 4.7 (3.5-5.0) g/dL Lipase 69 (8-78) U/L Ethyl Alcohol < 10 mg/dL COVID-19 ([facility]) (Negative) COVID-19 Clin Com Influenza Type A ([facility]) (Negative) Influenza Type B (ANG) (Negative) Influenza A & B Note Independent Historian Clinical information obtained from an independent historian. History obtained from or confirmed by: EMS No vomiting EN route. Patient appeared well during transport per EMS. External Record Review External record reviewed: Outpatient record, Prior outpatient labs and Prior outpatient radiology Tests considered The following testing was considered but not selected: CT scan considered but not required. prior CT scan from 06/25 reviewed Prescription Management I considered prescription management with: Pain Medication none required, no pain at this time Medications Administered Generic Name Dose Route Start Last Admin Trade Name Freq PRN Reason Stop Dose Admin Sodium Chloride 1,000 mls @ 999 mls/hr 06/06/22 00:15 06/06/22 00:37 Ns IVCONT 06/06/22 01:15 999 mls/hr .Q1H1M AMANDA Administration Discontinued Medications Generic Name Dose Route Start Last Admin Trade Name Freq PRN Reason Stop Dose Admin Ondansetron HCl 4 mg 06/06/22 00:14 06/06/22 00:34 Ondansetron Hcl 4 Mg/2 Ml Vial IVPUSH 06/06/22 00:15 4 mg ONCE ONE Administration Critical Care Time Critical Care Time Critical Care Time: No Discharge Plan Discharge Clinical Impression: Gastroenteritis Patient Disposition: Home, Self-Care Instructions: Gastroenteritis (ED) Additional Instructions: You lab workup today was unremarkable. You were negative for COVID and Flu. You most likely have an adverse reaction to eating pork. Avoid eating pork moving forward. Recommend rest and plenty of oral hydration. Stick to a bland diet like soup and toast while you are not feeling well. Take the prescribed medication as needed for nausea. Recommend over the counter Pepto Bismol or Imodium for upset stomach and diarrhea. Follow up with your doctor as needed. If you develop new or worsening symptoms call 911 or come back to the ER for further evaluation. Prescriptions: New ondansetron 4 mg tablet,disintegrating 4 mg PO Q8H PRN (Reason: nausea and vomiting) Qty: 7 0RF No Action metronidazole [Flagyl] 500 mg tablet 500 mg PO BID 7 Days Qty: 14 0RF doxycycline hyclate 100 mg capsule 100 mg PO BID 10 Days Qty: 20 0RF metronidazole 500 mg tablet 500 mg PO BID 7 Days Qty: 14 0RF
[2022-06-06 00:16] VITALS: BP 143/88; PULSE 103; RESP 19; TEMP 36.7; O2SAT 95
[2022-06-06 00:21] VITALS: BP 116/72; PULSE 108; O2SAT 97; BMI 29.7
[2022-06-06] MEDS: ondansetron HCL 4 MG/2 ML VIAL IVPUSH (00:34)
[2022-06-06 00:35] LABS: Basophils Absolute Auto 0.1 X10*3/uL (0.0-0.2); Basophils Percent Auto 1.2 % (0-2); Eosinophils Absolute Auto 0.3 X10*3/uL (0.0-0.4); Eosinophils Percent Auto 5.5 % (0-4); Hemoglobin 14.5 g/dl (14.0-18.0); Imm Gran Abs Auto 0.01 X10*3/uL (0.00-0.03); Imm Gran Pct Auto 0.2 % (0.0-0.4); Lymphocytes Percent Auto 36.2 % (20-40); Mean Corpuscular HGB Conc 33.7 g/dl (31.0-36.0); Mean Corpuscular Hemoglobin 29.4 pg (27.0-33.0); Mean Corpuscular Volume 87.2 fL (80.0-98.0); Mean Platelet Volume 9.5 fL (9.4-12.4); Monocytes Absolute Auto 0.4 X10*3/uL (0.1-1.2); Monocytes Percent Auto 6.7 % (2-11); Neutrophils Absolute Auto 2.8 x10*3/uL (2.0-8.3); Neutrophils Percent Auto 50.2 % (45-73); Platelet Count 260 X10*3/uL (160-400); Red Blood Count 4.93 X10*6/uL (4.60-5.80); Red Cell Distribution Width 13.2 % (11.0-16.0); White Blood Count 5.6 X10*3/uL (4.8-10.8)
[2022-06-06 00:36] LABS: MANUAL DIFF FLAG NO
[2022-06-06] MEDS: 0.9 % Sodium Chloride 1,000 ML 999 ML IVCONT (00:37)
[2022-06-06 00:50] LABS: IDNOW Serial# 16C4AD1C
[2022-06-06 00:51] LABS: COVID-19 Test Negative (Negative); IDNOW Serial# BCCEAD1C; Influenza A Negative (Negative); Influenza B2 Negative (Negative)
[2022-06-06 01:01] LABS: Alanine Aminotransferase 19 U/L (0-40); Albumin Level 4.7 g/dL (3.5-5.0); Alkaline Phosphatase 57 U/L (39-117); Anion Gap 13 (12-20); Aspartate Amino Transferase 25 U/L (5-37); Bilirubin Direct 0.2 mg/dL (0.0-0.5); Bilirubin Total 0.6 mg/dL (0.0-1.0); Blood Urea Nitrogen 10 mg/dL (9-16); Calcium 9.9 mg/dL (8.4-10.2); Carbon Dioxide 26 mmol/L (22-29); Chloride 106 mmol/L (96-108); Estimated Glomerular Filt Rate > 60; Ethanol < 10 mg/dL; Glucose Random 113 mg/dL (60-115); Lipase 69 U/L (8-78); Magnesium 1.9 mg/dL (1.6-2.6); Potassium 3.6 mmol/L (3.3-5.1); Sodium 141 mmol/L (135-145); Total Protein 7.5 g/dL (6.5-8.0)
[2022-06-06 01:12] LABS: Appearance Urine Clear; Color Urine Yellow; Glucose Urine UA Negative (Negative); Leukocyte Esterase Urine Moderate (2+) (Negative); Nitrite Urine Negative (Negative); Specific Gravity - Urine 1.015 (1.005-1.025); UMIC TRIGGER UACC YES; Urine Blood Negative (Negative); Urine Ketones 15 mg/dL (Negative); Urine Protein Negative (Neg-Trace)
--- NOTE | 2022-06-06 01:14 | PC.NURSE ---
IV removed with no complication. Pt tolerated well. Discharge instructions reviewed with pt. Pt verbalizes understanding.
[2022-06-06 01:17] LABS: Bacteria Urine None Seen (None Seen); Hyaline Casts Urine 0-2 /LPF (0-2); RBC Urine 0-2 /HPF (0-2); Squamous Epithelial Cell Urine 0-2 /HPF (0-2); UACC Culture Trigger YES
[2022-06-06 01:26] LABS: Amphetamine Screen Urine Not Detected (Not Detect); Barbiturates, Urine Not Detected (Not Detect); Benzodiazepines Screen Urine Not Detected (Not Detect); Cannabinoid Screen Urine POSITIVE (Not Detect); Cocaine Screen Urine Not Detected (Not Detect); Fentanyl, urine Not Detected (Not Detect); Opiate Screen Urine Not Detected (Not Detect); Phencyclidine Screen Urine POSITIVE (Not Detect)
== END 2022-06-06 01:16 | disposition home or self-care (01) ==
PROVIDERS: Physician Assistant; Emergency Provider Emergency Medicine Emergency Medical Services
DX: K52.9 Noninfective gastroenteritis and colitis, unspecified (principal); R10.9 Unspecified abdominal pain; Z20.822 Contact with and (suspected) exposure to COVID-19; J45.909 Unspecified asthma, uncomplicated; Z79.899 Other long term (current) drug therapy
CPT/HCPCS: 80048; 80076; 80307; 81001; 82077; 83690; 83735; 85025; 87086; 87502; 87635; 96361; 96374; 99284; J2405

== ENCOUNTER 2022-06-08 23:11 | Emergency (ER) | payer MEDICAID, SELFPAY ==
--- NOTE | 2022-06-08 | ECG_ITS ---
Test Reason : OVERDOSE Blood Pressure : / mmHG Vent. Rate : 123 BPM Atrial Rate : 123 BPM P-R Int : 154 ms QRS Dur : 102 ms QT Int : 318 ms P-R-T Axes : 054 026 028 degrees QTc Int : 455 ms Sinus tachycardia Otherwise normal ECG When compared with ECG of 19-NOV-2020 21:34, No significant change was found Referred By: Generic ED Physician Electronically Signed By:PARUL SMALL
[2022-06-08 23:21] VITALS: BP 156/88; PULSE 133; O2SAT 99
[2022-06-08 23:26] VITALS: PULSE 132; RESP 18; O2SAT 97; BMI 28.0
[2022-06-08 23:31] VITALS: BP 121/67; PULSE 133; RESP 18; TEMP 37.3; O2SAT 96
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
[2022-06-09 01:07] LABS: Fentanyl, urine Not Detected (Not Detect)
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
[2022-06-09 01:20] LABS: Amphetamine Screen Urine Not Detected (Not Detect); Barbiturates, Urine Not Detected (Not Detect); Benzodiazepines Screen Urine Not Detected (Not Detect); Cannabinoid Screen Urine POSITIVE (Not Detect); Opiate Screen Urine Not Detected (Not Detect); Phencyclidine Screen Urine POSITIVE (Not Detect)
[2022-06-09 01:25] VITALS: BP 121/67; PULSE 129; RESP 18; TEMP 36.4; O2SAT 96
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
[2022-06-09 02:03] LABS: Cocaine Screen Urine POSITIVE (Not Detect)
== END 2022-06-09 01:42 | disposition home or self-care (01) ==
PROVIDERS: Emergency Provider Internal Medicine
DX: F16.151 Hallucinogen abuse with hallucinogen-induced psychotic disorder with hallucinations (principal); F41.9 Anxiety disorder, unspecified; Z79.899 Other long term (current) drug therapy
CPT/HCPCS: 80307; 93005; 99284

== ENCOUNTER 2024-10-23 22:19 | Emergency (ER) | payer MEDICAID, SELFPAY ==
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
[2024-10-23 22:27] VITALS: BP 150/98; PULSE 85; RESP 20; TEMP 36.6; O2SAT 99; BMI 24.3
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
--- NOTE | 2024-10-23 23:44 | PC.NURSE ---
MD Flores in room suturing patient
[2024-10-24] MEDS: Diphth,Pertus(ACell),Tet Adult 0.5 ML SYRINGE IM (00:08)
[2024-10-24] MEDS: Lidocaine HCl 1 % MPF 5 ML VIAL SUBCUT (00:10)
[2024-10-24] MEDS: Acetaminophen 325 MG TABLET 650 MG PO (00:22)
[2024-10-24 00:36] VITALS: BP 136/76; PULSE 77; RESP 16; TEMP 36.6; O2SAT 98
[2024-10-24 00:37] VITALS: BP 136/76; PULSE 77; RESP 16; TEMP 36.6; O2SAT 98
== END 2024-10-24 00:37 | disposition home or self-care (01) ==
PROVIDERS: Emergency Provider Emergency Medicine
DX: S01.511A Laceration without foreign body of lip, initial encounter (principal); R51.9 Headache, unspecified; M25.532 Pain in left wrist; X58.XXXA Exposure to other specified factors, initial encounter; Y93.9 Activity, unspecified; Y92.9 Unspecified place or not applicable; Y99.8 Other external cause status; Z23 Encounter for immunization
CPT/HCPCS: 12013; 70450; 73110; 73130; 90471; 90715; 99284; J2003

== ENCOUNTER → 2024-10-23 22:50 | Outpatient (BNV) | payer MEDICAID, SELFPAY | PROVIDERS: Emergency Provider Emergency Medicine; Visit Provider Radiology Diagnostic Radiology | DX: S09.90XA Unspecified injury of head, initial encounter (principal); M79.645 Pain in left finger(s); M25.532 Pain in left wrist; V89.2XXA Person injured in unspecified motor-vehicle accident, traffic, initial encounter | CPT/HCPCS: 70450; 73110; 73130 ==

== ENCOUNTER 2025-06-01 07:28 | Day surgery (SDC) | payer MEDICAID, SELFPAY ==
[2025-06-01] VITALS (7 sets, daily range): BP systolic 98–144; BP diastolic 55–92; PULSE 81–103; RESP 15–20; TEMP 36.7–37.3; O2SAT 95–99; BMI 23.8
--- NOTE | ~2025-06-01 | XR_ITS ---
CLINICAL HISTORY: abd pain s p swallowing full egg 2 view abdomen Comparison: None provided Findings: Egg in rectum. No abnormal bowel dilation to suggest obstruction. No abnormal air-fluid levels or evidence of free intraperitoneal air. No acute fractures. IMPRESSION: Egg in rectum. No evidence of bowel obstruction. This document has been electronically signed by: Juvencio Lawton DO on 06/01/2025 11:35:48
--- NOTE | ~2025-06-01 | CT_ITS ---
CLINICAL HISTORY: FB in rectum CT abdomen and pelvis without contrast Comparison: CR - XR ABDOMEN MIN 2V - 06/01/25 09:41 EST Findings: The heart is not enlarged. The lung bases are clear. A few hepatic subcentimeter hypodensities are too small to characterize. Bilateral renal cysts. Few small nonobstructing calcifications/stones within the right kidney. The gallbladder and other abdominal solid organs are unremarkable. No bowel obstruction. Egg in rectum. Distal rectal mural thickening. Normal appendix. Pelvic structures unremarkable. No acute fracture. IMPRESSION: Egg in rectum. Distal rectal mural thickening suggestive of proctitis. No bowel obstruction. This document has been electronically signed by: Juvencio Lawton DO on 06/01/2025 11:57:51
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
--- OUTSIDE RECORDS SUMMARY | 2025-06-01 08:30 | XMS_ITS | Encounter Summary ---
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 SUPERVISOR Primary Care Provider Reason for Visit * Reason Onset Date Comments rs no show rct appt 03/26/2025 Encounter Details Date Type Department Care Team ([facility] Contact Info) Description 03/26/2025 Telephone [facility] [address] [place] [address] Alejandro Lemons, DDS [address] [place] [address] rs no show rct appt Social History Tobacco Use Types Packs/Day Years Used Date Smoking Tobacco: Never Alcohol Use Standard Drinks/Week Comments Defer 0 (1 standard drink = 0.6 oz pur e alcohol) Sex and Gender Information Value Date Recorded Sex Assigned at Male 04/04/2022 10:14 AM EDT Legal Sex Male 10:14 AM EDT Gender Identity Male 04/04/2022 10:14 AM EDT Sexual Orientation Straight 04/04/2022 10 :14 AM EDT documented as of this encounter Miscellaneous Notes * Telephone Encounter - Peyton Card - 03/26/2025 9:24 AM EDT Patient called in reschedule no show rct appointment on 02/24. Patient informed office will call back to schedule once they confirm provider that patient must be scheduled with documented in this encounter Plan of Treatment Upcoming Encounters Date Type Department Care Team ([facility] Contact Info) Description 06/25/2025 2:00 PM EST Office Visit [facility] ADULT DENTAL [address] [place] [address] Rip Carmona DDS [address] [place] [address] documented as of this encounter Visit Diagnoses Not on filedocumented in this encounter Care Teams It Help Desk Technician Relationship Specialty Start Date End Date Nichole Velasquez FNP [address] [place] [address] PCP - General Family Medicine 02/17/23 documented as of this encounter
--- OUTSIDE RECORDS SUMMARY | 2025-06-01 08:30 | XMS_ITS | Encounter Summary ---
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 Patient has been informed there is a waiting list for same day cx appt rescheduled as well as specialty appts are wait listed due to limited provider schedule. Patient informed they will receive a call back when it is their turn on list. Patient understoodDR documented in this encounter Plan of Treatment Upcoming Encounters Date Type Department Care Team (Late st Contact Info) Description 06/25/2025 2:00 PM EST Office Visit [facility] ADULT DENTAL [address] [place] [address] Rip Carmona DDS [address] [place] [address] documented as of this encounter Visit Diagnoses Not on filedocumented in this encounter Care Teams Roll Contour Grinder Relationship Specialty Start Date End Date Nichole Velasquez FNP [address] [place] [address] PCP - General Family Medicine 02/17/23 documented as of this encounter
--- OUTSIDE RECORDS SUMMARY | 2025-06-01 08:30 | XMS_ITS | Encounter Summary ---
Author Organization [employer] Address [address] [place] [address] [address] [address] Care Team Providers Care Food Service Aide Name Role Phone Nichole Velasquez SETH Primary Care Provider Reason for Visit * Reason Onset Date Comments appt 05/08/2025 Encounter Details Date Type Department Care Team (Late Contact Info) Description 05/08/2025 Telephone [facility] ADULT DENTAL [address] [place] [address] Rip Carmona DDS [address] [place] [address] appt Social History Tobacco Use Types Packs/Day [...] encounter Miscellaneous Notes * Telephone Encounter - Doug Lizarraga - 05/08/2025 9:52 AM EST PT is calling in to rs his endo appointment he already has 2 no shows so I let him know that next appointment that is made he needs to make sure he can make it. Please call pt with new appointment time. cs documented in this encounter Plan of Treatment Upcoming Encounters Date Type Department Care Team (Late Contact Info) Description 06/25/2025 2:00 PM EST Office Visit [facility] ADULT DENTAL [address] [place] [address] Rip Carmona DDS [address] [place] [address] documented as of this encounter Visit Diagnoses Not on filedocumented in this encounter Care Teams Food Service Aide Relationship Specialty Start Date End Date Nichole Velasquez FNP [address] [place] [address] PCP - General Family Medicine 02/17/23 documented as of this encounter
--- OUTSIDE RECORDS SUMMARY | 2025-06-01 08:30 | XMS_ITS | Encounter Summary ---
Author Organization [employer] Address [address] [facility] [address] [place] [id number] Care Team Providers Care Brand Ambassador Promotional Model Name Role Phone Nichole Velasquez Primary Care Provider Encounter Details Date Type Department Care Team (Latest Contact Info) Description 10/20/2020 Abstract [facility] CONVERSIONS Dental, Provider, DDS Social History Tobacco Use Types Packs/Day Years Used Date Smoking Tobacco: Never Assessed Sex and Gender Information Value Date Recorded Sex Assigned at Male 04/04/2022 10:14 AM EDT Legal Sex Male 10:14 AM EDT Gender Identity Male 04/04/2022 10:14 AM EDT Sexual Orientation Straight 04/04/2022 10 :14 AM EDT documented as of this encounter Plan of Treatment Upcoming Encounters Date Type Department Care Team (Late st Contact Info) Description 06/25/2025 2:00 PM EST Office Visit [facility] ADULT DENTAL [address] [place] [address] Rip Carmona DDS [address] [place] [address] documented as of this encounter Visit Diagnoses Not on filedocumented in this encounter Care Teams Brand Ambassador Promotional Model Relationship Specialty Start Date End Date Nichole Velasquez FNP [address] [facility] [place] [address] PCP - General Family Medicine 02/17/23 documented as of this encounter
--- NOTE | 2025-06-01 08:39 | ED.GENADULT ---
HPI - General Adult General Chief complaint: General Medical Stated complaint: Stomach pain / feels foreign object Time Seen by Provider: 06/01/25 08:36 Source: patient Mode of arrival: ambulatory Limitations: no limitations History of Present Illness ED Provider: RADHA Valentin HPI narrative: Chief Complaint: ?I swallowed a whole egg with the shell.? History of Present Illness: The patient is a young adult male hx of anxiety, depression and PCP abuse who presents after swallowing an entire chicken egg, including the shell, on a dare earlier today. He reports that the event was witnessed and occurred without choking or immediate distress. He denies any history of esophageal or gastrointestinal disease, prior foreign body ingestion, or psychiatric illness. He is currently asymptomatic and specifically denies pain, nausea, vomiting, diarrhea, dysphagia, odynophagia, chest pain, abdominal pain, hematemesis, melena, or difficulty breathing. He attempted self-massage of the neck in an effort to facilitate passage, without effect. The patient expressed concern regarding possible complications and inquired about removal of the egg, as well as the safety of expectant management. He was counseled regarding the risks of foreign body ingestion, including obstruction, perforation, and infection, and the rationale for observation versus intervention. He is otherwise healthy. Social history is notable for participation in risky behaviors (dare) also has a hx of PCP abuse. No family history of GI disorders. Patient is alert, oriented, and demonstrates appropriate insight and concern for his health. Related Data Previous Rx's ?Medication ?Instructions ?Recorded metronidazole 500 mg tablet 500 mg PO BID 7 days #14 tabs 06/29/20 (Flagyl) doxycycline hyclate 100 mg capsule 100 mg PO BID 10 days #20 caps 05/31/22 metronidazole 500 mg tablet 500 mg PO BID 7 days #14 tabs 05/31/22 ondansetron 4 mg disintegrating 4 mg PO Q8H PRN nausea and 06/06/22 tablet vomiting #7 tabs Allergies Allergy/AdvReac Type Severity Reaction Status Date / Time No Known Allergies Allergy Verified 06/01/25 07:51 Review of Systems Review of Systems: Review of Systems: ? Constitutional: Denies fever, chills, malaise, weight loss. ? Eyes: Denies visual changes, eye pain, redness. ? ENT: Denies sore throat, dysphagia, odynophagia, hoarseness. ? Cardiovascular: Denies chest pain, palpitations, syncope. ? Respiratory: Denies shortness of breath, cough, wheezing. ? Gastrointestinal: Denies nausea, vomiting, diarrhea, abdominal pain, hematemesis, melena, constipation. ? Genitourinary: Denies dysuria, hematuria, urinary retention. ? Musculoskeletal: Denies neck pain, back pain, joint pain. ? Neurological: Denies headache, dizziness, weakness, numbness. ? Psychiatric: Denies anxiety, depression, suicidal ideation. ? Skin: Denies rash, swelling, bruising. ? Hematologic: Denies bleeding, easy bruising. ? Endocrine: Denies polyuria, polydipsia, heat/cold intolerance. All other systems reviewed and negative except as noted above. Yes all other systems are reviewed and are negative PMFSH Past Medical History Attestation statement: The following information was validated with the patient. Source: old records reviewed and nursing notes reviewed Medical History PCP abuse Anxiety Depression Asthma No known health problems Social History Social History Alcohol intake: current Alcohol intake frequency: does not drink Patient Tobacco Use Status: Refuse Tobacco use screen Smoked in Last 30 Days: No Substance Use Type: Crack/Cocaine, Hallucinogens and Other Advance Directives: No Advance Directives Information Provided: Yes Do you have a plan to hurt others: No Plan Physical Exam ED Exam Exam: Physical Exam: ? General: Alert, oriented, in no acute distress. ? HEENT: Normocephalic, atraumatic. Oropharynx clear, no foreign body visualized, no swelling, no tenderness to palpation of neck. ? Eyes: Pupils equal, round, reactive to light. Extraocular movements intact. ? Neck: Supple, no masses, no tenderness, no crepitus, no subcutaneous emphysema. ? Cardiovascular: Regular rate and rhythm, no murmurs, rubs, or gallops. ? Respiratory: Clear to auscultation bilaterally, no wheezes, rales, or rhonchi. No respiratory distress. ? Gastrointestinal: Abdomen soft, non-tender, no distension, normal bowel sounds, no guarding or rebound. ? Musculoskeletal: Full range of motion, no tenderness, no deformity. ? Neurological: Alert, oriented x3, cranial nerves II-XII intact, no focal deficits. ? Skin: Warm, dry, no rash, no bruising. ? Psychiatric: Appropriate affect, normal mood, cooperative. ? Lymphatic: No cervical, axillary, or inguinal lymphadenopathy. ? Genitourinary: Deferred. Vital Signs: Vital Signs - 24 hr 06/01/25 07:47 06/01/25 13:16 Temperature 98.7 F 98.9 F Pulse Rate 103 H 99 Respiratory Rate 20 16 Blood Pressure 144/81 H 129/82 Pulse Oximetry 96 95 Oxygen Delivery Method Room Air Room Air BMI result Body Mass Index 23.8 vss Course Reevaluation(s) Reevaluation #1: Patient tolerating PO. Discussed w/ GI Dr. Bravo. The egg hopefully will pass on its own and likely got crushed w/ paristalsis. Time: 09:19 Reevaluation #2: Patient's affect bizarre I decided to do a KUB based off my interpretation there appears to be a circular/ovoid structure within the rectum. Will proceed with CT for better classification I did reach out to general surgery who will evaluate patient Time: 10:44 Reevaluation #3: CBC unremarkable. Chemistry no acute findings needing intervention. Ethanol negative. Preoperative Mortality Predictor (SALES REPRESENTATIVE G[employer]ICE) Score from [email or web address] on 06/01/2025 All calculations should be rechecked by clinician prior to use RESULT SUMMARY: 0 points SALES REPRESENTATIVE G[employer]ICE Score 0.1 % Risk of perioperative mortality INPUTS: Inpatient ?> 0 = No Sepsis ?> 0 = No Poor functional status ?> 0 = No Disseminated cancer ?> 0 = No Age, years ?> 0 = <65 Cardiac comorbidity ?> 0 = No Pulmonary comorbidity ?> 0 = No Renal comorbidity ?> 0 = No Liver comorbidity ?> 0 = No Steroids for chronic condition ?> 0 = No Weight loss ?> 0 = No Bleeding disorder ?> 0 = No DNR status ?> 0 = No Obesity ?> 0 = No Medically cleared on my end Time: 12:01 Additional Reevaluation(s): Patient heade to the OR likely d/c from there Medications Administered Discontinued Medications Generic Name Dose Route Start Last Admin Trade Name Freq PRN Reason Stop Dose Admin Lorazepam 1 mg 06/01/25 13:31 06/01/25 13:39 Lorazepam 1 Mg Tablet PO 06/01/25 13:32 1 mg ONCE ONE Administration Medical Decision Making Medical Decision Making [facility] Narrative: Patient swallowed a whole egg with shell and is currently asymptomatic without signs of obstruction or distress. No emergent intervention required. Medical decision-making involved assessment of foreign body characteristics (size, shape, composition), risk of GI obstruction or perforation, and review of current guidelines for management. Risks, benefits, and alternatives to intervention were discussed in detail with the patient, including the low likelihood of spontaneous passage for large objects and the potential need for endoscopic retrieval if symptoms develop. Shared decision-making was employed, with the patient opting for expectant management after counseling. High complexity due to potential for serious complications and need for close follow-up. Problem #1: Foreign body ingestion (whole egg with shell) Assessment: Asymptomatic ingestion of large, smooth foreign body. Patient denies pain, GI or respiratory symptoms. Object exceeds recommended size for expectant management; however, patient is currently stable and prefers observation after informed discussion. Plan: No immediate procedural intervention indicated. Allow diet as tolerated; patient may eat and drink as desired. Patient advised to wait for the egg to pass naturally; removal is not indicated at this time. Extensive counseling provided regarding risks of obstruction, perforation, infection, and need for emergent intervention if symptoms develop. Discussed benefits and risks of endoscopic removal versus observation, and alternatives including surgical intervention if complications arise. Differential Diagnosis Differential Diagnoses: The differential diagnosis associated with the presentation includes Esophageal or gastrointestinal obstruction due to other causes (e.g., bezoar, food bolus impaction, stricture, malignancy) Esophageal perforation Gastrointestinal perforation from other foreign bodies or trauma Infectious esophagitis or gastritis Functional dysphagia (e.g., motility disorder) Psychiatric or behavioral disorder (intentional ingestion) Respiratory tract foreign body aspiration Acute gastroenteritis Peptic ulcer disease Other causes of acute abdominal pain (e.g., appendicitis, cholecystitis, pancreatitis) Admission/Observation Consideration of admission/observation: Escalation of care including admission/observation considered Consult Healthcare Provider Management of the patient was discussed with: Appellate Law Clerk (Isamar ) Lab Data [facility] Lab Attestation statement: I reviewed the patient's lab results. 06/01/25 11:19 06/01/25 11:19 Labs: Lab Results 06/01/25 06/01/25 Range/Units 11:19 12:22 WBC 6.1 (4.8-10.8) X10*3/uL RBC 4.60 (4.60-5.80) X10*6/uL Hgb 14.1 (14.0-18.0) g/dl Hct 40.7 L (42.0-52.0) % MCV 88.5 (80.0-98.0) fL MCH 30.7 (27.0-33.0) pg MCHC 34.6 (31.0-36.0) g/dl RDW 13.1 (11.0-16.0) % Plt Count 259 (160-400) X10*3/uL MPV 9.2 L (9.4-12.4) fL Immature Gran % (Auto) 0.2 (0.0-0.4) % Neut % (Auto) 61.6 (45-73) % Lymph % (Auto) 28.2 (20-40) % [place] % (Auto) 7.8 (2-11) % Eos % (Auto) 1.1 (0-4) % Baso % (Auto) 1.1 (0-2) % Lymph # (Auto) 1.7 (1.2-4.9) X10*3/uL [place] # (Auto) 0.5 (0.1-1.2) X10*3/uL Eos # (Auto) 0.1 (0.0-0.4) X10*3/uL Baso # (Auto) 0.1 (0.0-0.2) X10*3/uL Abs Immat Gran (auto) 0.01 (0.00-0.03) X10*3/uL Absolute Neuts (auto) 3.8 (2.0-8.3) x10*3/uL Absolute Nucleated RBC 0.000 (0.0-0.012) X10*3/uL Nucleated RBC % (auto) 0.0 (0.0-0.2) /100WBC PT 12.1 (11.2-13.5) SEC INR 1.0 (0.9-1.1) Sodium 140 (135-145) mmol/L Potassium 3.3 (3.3-5.1) mmol/L Chloride 108 (96-108) mmol/L Carbon Dioxide 26 (22-29) mmol/L Anion Gap 9 L (12-20) BUN 9 (9-16) mg/dL Creatinine 0.83 (0.5-1.4) mg/dL Estim Creat Clear Calc 120.5 Estimated GFR > 60 Random Glucose 106 (60-115) mg/dL Calcium 9.4 (8.4-10.2) mg/dL Total Bilirubin 0.5 (0.0-1.0) mg/dL AST 35 (5-37) U/L ALT 36 (0-40) U/L Alkaline Phosphatase 65 (39-117) U/L Total Protein 7.1 (6.5-8.0) g/dL Albumin 4.6 (3.5-5.0) g/dL Urine Opiates Screen Not Detected (Not Detect) Ur Buprenorphine Scrn Not Detected (Not Detect) ng/mL Ur Oxycodone Screen Not Detected (Not Detect) ng/mL Urine Methadone Screen Not Detected (Not Detect) ng/mL Urine Fentanyl Screen Not Detected (Not Detect) Ur Barbiturates Screen Not Detected (Not Detect) Ur Phencyclidine Scrn POSITIVE H (Not Detect) Ur Amphetamines Screen Not Detected (Not Detect) U Benzodiazepines Scrn Not Detected (Not Detect) Urine Cocaine Screen POSITIVE H (Not Detect) U Marijuana (THC) Screen POSITIVE H (Not Detect) Ethyl Alcohol < 10 mg/dL Independent Interpretation I performed an independent interpretation of an: Plain X-Ray Radiology Impression Discussion of test interpretation with radiology: I have reviewed the radiologist's reading. External Record Review External record reviewed: Inpatient record, Office record, Outpatient record, Prior outpatient labs, Prior outpatient radiology, Primary care record and Outside ED record Chronic Conditions Patient?s care impacted by: Other (see hpi ) Critical Care Time Critical Care Time Critical Care Time: Yes Total Critical Care Time: 35 Attestation: I attest to this time spent taking care of the patient, obtaining history, physical, reviewing labs, imaging, treatment of patients condition +/- specialist/hospitalist consult +/- procedure Discharge Plan Discharge Clinical Impression: FB anus/rectum Qualifiers: Encounter type: initial encounter Qualified Code(s): T18.5XXA - Foreign body in anus and rectum, initial encounter Patient Disposition: Admitted As Inpatient Additional Instructions: Take your medications as prescribed. If you were prescribed antibiotics today, it is important that you take your medication to their entirety, do not skip any doses, do not finish them early. Follow-up with your primary care provider this week. Return to the emergency department with new or worsening symptoms. In case of emergency call 911 RETURN PRECAUTIONS - WHEN TO SEEK IMMEDIATE MEDICAL CARE You were seen today after swallowing a whole egg with the shell. You are currently feeling well and do not have any symptoms. The egg is expected to pass naturally through your digestive system. However, you should return to the emergency department immediately or call 911 if you develop any of the following symptoms: Seek immediate medical attention if you experience: Severe abdominal pain?or pain that gets worse over time Nausea or vomiting, especially if you cannot keep down liquids Difficulty swallowing?or pain when swallowing Chest pain?or pain behind your breastbone Vomiting blood?or material that looks like coffee grounds Black, tarry stools?or blood in your stool Fever?(temperature above 100.4?F or 38?C) Inability to have a bowel movement?or severe constipation Difficulty breathing, shortness of breath, or choking sensation Neck pain, swelling, or tenderness Drooling?or inability to swallow your saliva Additional instructions: You may eat and drink normally The egg should pass naturally in your stool within several days If you have any concerns or questions, contact your healthcare provider Important:?If you develop any of the symptoms listed above, do not wait. Seek medical care immediately. Print Language: Syrian
[2025-06-01 11:25] LABS: MANUAL DIFF FLAG NO
[2025-06-01 11:32] LABS: Hematocrit 40.7 % (42.0-52.0); Hemoglobin 14.1 g/dl (14.0-18.0); Imm Gran Abs Auto 0.01 X10*3/uL (0.00-0.03); Imm Gran Pct Auto 0.2 % (0.0-0.4); Lymphocytes Absolute Auto 1.7 X10*3/uL (1.2-4.9); Mean Corpuscular HGB Conc 34.6 g/dl (31.0-36.0); Mean Corpuscular Hemoglobin 30.7 pg (27.0-33.0); Mean Corpuscular Volume 88.5 fL (80.0-98.0); NRBC Abs Auto 0.000 X10*3/uL (0.0-0.012); NRBC Pct Auto 0.0 /100WBC (0.0-0.2); Platelet Count 259 X10*3/uL (160-400); Red Blood Count 4.60 X10*6/uL (4.60-5.80); White Blood Count 6.1 X10*3/uL (4.8-10.8)
[2025-06-01 11:35] LABS: INTERNATIONAL NORM RATIO 1.0 (0.9-1.1); Prothrombin Time 12.1 SEC (11.2-13.5)
[2025-06-01 11:56] LABS: Alanine Aminotransferase 36 U/L (0-40); Albumin Level 4.6 g/dL (3.5-5.0); Alkaline Phosphatase 65 U/L (39-117); Anion Gap 9 (12-20); Aspartate Amino Transferase 35 U/L (5-37); Blood Urea Nitrogen 9 mg/dL (9-16); Calcium 9.4 mg/dL (8.4-10.2); Carbon Dioxide 26 mmol/L (22-29); Chloride 108 mmol/L (96-108); Creatinine Clr Calc Pharmacy 120.5; Estimated Glomerular Filt Rate > 60; Potassium 3.3 mmol/L (3.3-5.1); Sodium 140 mmol/L (135-145); Total Protein 7.1 g/dL (6.5-8.0)
--- NOTE | 2025-06-01 12:42 | P.HPGS_ITS ---
History of Present Illness History of Present Illness Date of Service: 06/01/25 Chief complaint: Stomach pain / feels foreign object Narrative: Tre Ramos is a 29 year old male presents with a rectal foreign body. Patient reports yesterday ?I really alliance party with a lot of my friends and we did a bunch of crazy things. He says that his ?friends maybe swallow on an egg. He goes on to say he since has not experienced any problems or discomfort however he got ?worried? about the issue and since then presented here. Plain films and then CT scan of his abdomen and pelvis was not indicative of any radiographically evident issue other than an egg in the patient's rectum. There is also some surrounding rectal wall thickening consistent with proctitis. No evidence of perforation, no free fluid and no evidence of obstruction. Patient reports he is passing gas but has not had a bowel movement since the incident. He denies any history of abdominal trauma or surgery in the past. FORMERLY [facility] Past Medical History Medical History PCP abuse Anxiety Depression Asthma No known health problems Social History Social History Alcohol intake: current Alcohol intake frequency: does not drink Patient Tobacco Use Status: Refuse Tobacco use screen Smoked in Last 30 Days: No Substance Use Type: Crack/Cocaine, Hallucinogens and Other Advance Directives: No Advance Directives Information Provided: Yes Do you have a plan to hurt others: No Plan Meds Allergies Allergy/AdvReac Type Severity Reaction Status Date / Time No Known Allergies Allergy Verified 06/01/25 07:51 Physical Exam Vital Signs: Vital Signs: Last Vital Signs Temp 98.7 F 06/01/25 07:47 Pulse 103 H 06/01/25 07:47 Resp 20 06/01/25 07:47 BP 144/81 H 06/01/25 07:47 Pulse Ox 96 06/01/25 07:47 O2 Del Method Room Air 06/01/25 07:47 BMI result Body Mass Index 23.8 Const: General: cooperative and comfortable Orientation/consciousness: oriented to person, oriented to place and oriented to time HEENT: Head: Yes normal to inspection, Yes normocephalic and Yes atraumatic Ears: hearing grossly normal bilaterally General nose exam: Normal external nose present Eyes: Pupils: Equal, round and reactive pupils present EOM: EOMs intact bilaterally Neck: Neck: Yes normal visual inspection Chest: Chest palpation & inspection: normal inspection of the chest Resp: Effort & Inspection: normal respiratory effort and able to speak in complete sentences Cardio: Rate: regular rate Rhythm: regular rhythm GI: Other: Soft gallop nontender nondistended no masses or hernias or evidence of hepatosplenomegaly. Inspection: Yes normal to inspection Neuro: General: oriented to person, oriented to place and oriented to time Cranial nerves: Yes CN's II-XII intact bilaterally and Yes Equal, round and reactive pupils present Results Results Labs: Short CBC 06/01/25 Range/Units 11:19 WBC 6.1 (4.8-10.8) X10*3/uL Hgb 14.1 (14.0-18.0) g/dl Hct 40.7 L (42.0-52.0) % Plt Count 259 (160-400) X10*3/uL BMP 06/01/25 11:19 Sodium 140 Potassium 3.3 Chloride 108 Carbon Dioxide 26 BUN 9 Creatinine 0.83 Calcium 9.4 Liver Function 06/01/25 Range/Units 11:19 Total Bilirubin 0.5 (0.0-1.0) mg/dL AST 35 (5-37) U/L ALT 36 (0-40) U/L Alkaline Phosphatase 65 (39-117) U/L Albumin 4.6 (3.5-5.0) g/dL Assessment and Plan (1) FB anus/rectum: Qualifiers: Encounter type: initial encounter Qualified Code(s): T18.5XXA - Foreign body in anus and rectum, initial encounter Status: Acute Plan I told the patient the recommendation would be that the foreign body is removed. I reviewed with him the fact that he might have already sustained injury to his perineum, anus or rectum affecting function and comfort by placing an egg in his rectum but be that as it may I do not recommend expectant management and did not feel that it will pass on its own. Removal might be possible with examination under anesthesia, anoscopy, possible rigid sigmoidoscopy etc. Unfortunately he might need a transabdominal exploration of the form of exploratory laparoscopy possible laparotomy possible colonic resection possible Paulo's procedure. The risks of such an endeavor were reviewed with him in detail. These include but are not limited to the risk of bleeding, the risk of scarring, the risk of hernia formation, the risk of infection, the risk of damage to the pelvic floor musculature, the risk of damage to the anorectal mucosa, musculature and innervation, the risks entailed with major abdominal surgery including the risk of problems associated with a diverting colostomy should 1 be needed were all reviewed with him in detail. He indicated that he understood. He expressed some regret over the events but indicated he understood and accepted the risks of surgery and also indicated that he wished to proceed with operative intervention. Quality Stroke Does the patient have a stroke diagnosis?: No VTE Prior VTE?: No VTE Risk Level:: Surgical - low VTE Device Contraindication: N/A - Device Ordered VTE Drug Contraindication: N/A - Med Ordered Procedures Date of Service Date of Service: 06/01/25
[2025-06-01 12:57] LABS: Cannabinoid Screen Urine POSITIVE (Not Detect)
--- NOTE | 2025-06-01 13:09 | P.CONAN_ITS ---
HPI - Anesthesia Eval Consult details Narrative: rectal foreign body PMFSH Active Problems Active Problems: All Active Problems FB anus/rectum (Acute) Past Medical History Medical History PCP abuse Anxiety Depression Asthma No known health problems Family History Family history of problems with anesthesia: No Surgical History History of Problems with Anesthesia: No Social History Social History Alcohol intake: current Alcohol intake frequency: does not drink Patient Tobacco Use Status: Refuse Tobacco use screen Smoked in Last 30 Days: No Substance Use Type: Crack/Cocaine, Hallucinogens and Other Advance Directives: No Advance Directives Information Provided: Yes Do you have a plan to hurt others: No Plan Meds Allergies Allergy/AdvReac Type Severity Reaction Status Date / Time No Known Allergies Allergy Verified 06/01/25 07:51 Exam Height,Weight and Vital Signs: Height 5 ft 7 in Weight 68.8 kg Last Vital Signs Temp 98.7 F 06/01/25 07:47 Pulse 103 H 06/01/25 07:47 Resp 20 06/01/25 07:47 BP 144/81 H 06/01/25 07:47 Pulse Ox 96 06/01/25 07:47 O2 Del Method Room Air 06/01/25 07:47 Pertinent Lab Results Pertinent Lab Results: Laboratory Tests 06/01/25 06/01/25 11:19 12:22 WBC 6.1 RBC 4.60 Hgb 14.1 Hct 40.7 L MCV 88.5 MCH 30.7 MCHC 34.6 RDW 13.1 Plt Count 259 MPV 9.2 L Immature Gran % (Auto) 0.2 Neut % (Auto) 61.6 Lymph % (Auto) 28.2 [place] % (Auto) 7.8 Eos % (Auto) 1.1 Baso % (Auto) 1.1 Lymph # (Auto) 1.7 [place] # (Auto) 0.5 Eos # (Auto) 0.1 Baso # (Auto) 0.1 Abs Immat Gran (auto) 0.01 Absolute Neuts (auto) 3.8 Absolute Nucleated RBC 0.000 Nucleated RBC % (auto) 0.0 PT 12.1 INR 1.0 Sodium 140 Potassium 3.3 Chloride 108 Carbon Dioxide 26 Anion Gap 9 L BUN 9 Creatinine 0.83 Estim Creat Clear Calc 120.5 Estimated GFR > 60 Random Glucose 106 Calcium 9.4 Total Bilirubin 0.5 AST 35 ALT 36 Alkaline Phosphatase 65 Total Protein 7.1 Albumin 4.6 Urine Opiates Screen Not Detected Ur Buprenorphine Scrn Not Detected Ur Oxycodone Screen Not Detected Urine Methadone Screen Not Detected Urine Fentanyl Screen Not Detected Ur Barbiturates Screen Not Detected Ur Phencyclidine Scrn POSITIVE H Ur Amphetamines Screen Not Detected U Benzodiazepines Scrn Not Detected Urine Cocaine Screen POSITIVE H U Marijuana (THC) Screen POSITIVE H Ethyl Alcohol < 10 Airway Mallampati Class: I TM Dist: >3cm Loose/Missing/Broken Teeth: Yes (multiple broken teeth, some missing) Heart: RRR Lungs: CTA Assessment and Plan Assessment Anesthesia Assessment: Anesthesia Plan Discussed and Chart Reviewed Final Anesthetic Review Family History of Problems with Anesthesia: No History of Problems with Anesthesia: No NPO: Yes ASA Class: II and Emergency Final Preanesthetic Review: No Changes in Pt Med Stat, Meds/Allgs Chart Reviewed, Consent Obtained/Reviewed and Anes Risks/Benef Reviewed Patient Risk: Low Procedure Risk: Low Anesthetic Plan Anesthetic Plan: GA Disposition: Standard PACU
--- NOTE | 2025-06-01 15:08 | PC.NURSE ---
nurse to nurse given to BRIAN Sexton in Short stay
--- NOTE | 2025-06-01 15:51 | P.OP_ITS ---
Operative Note Operative Note Date of Service: 06/01/25 Narrative: Preoperative diagnosis rectal foreign body Postoperative diagnosis same Procedure performed examination under anesthesia and extraction of rectal foreign body Anesthesia general endotracheal anesthesia Surgeon: Farhad Angela MD Specimen rectal foreign body gross appearance of a chicken egg The patient is brought to the operating room and placed supine on the operating table. His arms and legs were cushioned appropriately and Venodyne boots were cycled. General endotracheal anesthesia was initiated via the Anesthesiology Service and he is placed in a lithotomy position. After time-out had been performed digital rectal examination was performed. The patient was very patulous the anorectal verge with significant dilation of the anal canal and what appeared to be decreased sphincteric tone. There is no evidence of gross anorectal pathology. I Was able to insert most my hand with not too much difficulty into the anorectal canal and at the top of the rectum before the pelvic brim, was able to palpate the edge of what seemed to be a chicken egg. With counter palpation from above on the the patient's lower abdomen the chicken egg was able to be maneuvered into a position where finger extraction was po ssible. It was then delivered out of the patient's anus without difficulty and passed off table the specimen. There was no blood. There is no evidence of any injury to the anoderm or rectal mucosa. No other pathology was encountered. The patient tolerated procedure well, was recovered from anesthesia and taken to the recovery room in good condition. Should be noted that the sponge instrument needle counts were correct at the end of the case.
== END 2025-06-01 16:38 | disposition home or self-care (01) ==
LOC: HO.ED 15:15 → HO.SSS 15:20
PROVIDERS: Physician Assistant; Emergency Provider Emergency Medicine; Visit Provider Surgery
PROC: (CPT 45915; principal; 2025-06-01 15:00)
DX: T18.5XXA Foreign body in anus and rectum, initial encounter (principal); F16.10 Hallucinogen abuse, uncomplicated; F41.9 Anxiety disorder, unspecified; F32.A Depression, unspecified; J45.909 Unspecified asthma, uncomplicated; Z72.89 Other problems related to lifestyle
CPT/HCPCS: 45915; 36415; 74019; 74176; 80053; 80307; 85025; 85610; 88300; 99284; 99285; J2003; J2405; J2704; J3010

== ENCOUNTER → 2025-06-01 08:22 | Outpatient (BNV) | payer MEDICAID, SELFPAY | PROVIDERS: Emergency Provider Emergency Medicine; Visit Provider Surgery | DX: T18.5XXA Foreign body in anus and rectum, initial encounter (principal) | CPT/HCPCS: 45915; 99221 ==

== ENCOUNTER → 2025-06-01 09:21 | Outpatient (BNV) | payer MEDICAID, SELFPAY | PROVIDERS: Emergency Provider Emergency Medicine; Visit Provider Radiology Diagnostic Radiology | DX: T18.5XXA Foreign body in anus and rectum, initial encounter (principal) | CPT/HCPCS: 74019; 74176 ==